=== PATIENT | female | born 1960 | race African-American/Black ===

== ENCOUNTER → 2016-09-29 | Outpatient (CLI) | payer MEDICARE, OTHER ==
[2016-09-29 17:30] LABS: ALT 27 U/L (9-52); AST 25 U/L (14-36); Alkaline Phosphatase 53 U/L (38-126); Anion Gap 12 mmol/L; Blood Urea Nitrogen 15 mg/dL (7-17); Calcium 9.8 mg/dL (8.4-10.2); Carbon Dioxide 29 mmol/L (22-30); Chloride 102 mmol/L (98-107); Glucose 91 mg/dL (74-99); Non-African American GFR(MDRD) >60 (>60 ml/min/1.73 sqM); Potassium 4.5 mmol/L (3.5-5.1); Sodium 143 mmol/L (137-145); Total Bilirubin 0.6 mg/dL (0.2-1.3); Total Protein 8.1 g/dL (6.3-8.2)
[2016-09-29 17:33] LABS: Basophils % (A) 0 %; CH 26.8; CHCM 31.7; Eosinophils % (A) 1 %; HCT 36.3 % (34.0-46.0); HDW 3.01; HGB 11.5 gm/dL (11.4-16.0); Hypochromasia Slight; Luc # (Auto) 0.14; Luc % (Auto) 4; Lymphocytes # (A) 0.5 k/uL (1.0-4.8); Lymphocytes % (A) 15 %; MCH 26.8 pg (25.0-35.0); MCHC 31.6 g/dL (31.0-37.0); Mean Platelet Volume 7.2; Monocytes # (A) 0.3 k/uL (0-1.0); Monocytes % (A) 8 %; Neutrophils # (A) 2.6 k/uL (1.3-7.7); Neutrophils % (A) 73 %; RBC 4.28 m/uL (3.80-5.40); RDW 14.8 % (11.5-15.5); WBC 3.6 k/uL (3.8-10.6); WBC (Perox) 3.82
[2016-09-29 17:35] LABS: MCV 84.7 fL (80.0-100.0)
[2016-09-29 17:46] LABS: HCG,Quantitative Serum <2.4 mIU/mL
== END | disposition home or self-care (01) ==
LOC: LABWHC1 16:29
PROVIDERS: ATTEND Radiology Radiation Oncology
DX: C50.412 Malignant neoplasm of upper-outer quadrant of left female breast (principal)
CPT/HCPCS: 36415; 80053; 80177; 84443; 84702; 85025

== ENCOUNTER → 2016-11-04 | Outpatient (CLI) | payer MEDICARE, OTHER ==
--- NOTE | 2016-11-05 07:45 | BD ---
EXAMINATION TYPE: MG DEXA axial skeleton. DATE OF EXAM: 11/04/2016 4:49 PM COMPARISON: NONE CLINICAL HISTORY: C50.112 BREAST CANCER, Z79.890 POST MENOPAUSAL, N95.1 Height: 62.5 Weight: 166 FRAX RISK QUESTIONS: Alcohol (3 or more units per day): NO Family History (Parent hip fracture): UNKNOWN Glucocorticoids (More than 3mos): NO (Ex: prednisone, prednisolone, methylprednisolone, dexamethasone, and hydrocortisone). History of Fracture in Adulthood: NO Secondary Osteoporosis: NO 1. Type 1 Diabetes: NO 2. Hyperthyroidism: NO 3. Menopause before 45: YES 4. Malnutrition: NO 5. Chronic liver disease: NO Rheumatoid Arthritis: NO Current Tobacco Use: NO RISK FACTORS HISTORY OF: Family History of Osteoporosis: UNKNOWN Smoke tobacco: NO Drink Alcohol: NO Active: NO Diet low in dairy products/other sources of calcium: NO Postmenopausal woman: HX OF HYST. 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 Bone mineral density as measured about the Lumbar spine is: ----- L1-L4(G/cm2): 1.419 T Score Values are as follows: ----- L1: 1.5 ----- L2: 2.0 ----- L3: 2.3 ----- L4: 1.9 ----- L1-L4: 2.0 Bone mineral density FIRST BONE DENSITY SCAN FOR HER......BASELINE Bone mineral density about the R hip (g/cm2): 1.366 Bone mineral density about the L hip (g/cm2): 1.377 T Score values are as follows: -----R Neck: 1.9 -----L Neck: 2.0 -----R Intertrochanter: 3.0 -----L Intertrochanter: 3.4 Bone mineral density FIRST BONE DENSITY......BASELINE FRAX %'S: 1.9% FOR A MAJOR OSTEOPOROTIC FX AND 0.0% FOR A HIP FX......PROBABILITY OF FX IN 10 YRS TIME IMPRESSION: Normal (Values between +1 and -1 indicate normal bone mass MAJOR OSTEOPOROTIC FRACTURE RISK: 1.9% HIP FRACTURE RISK: 0% NOTE: T-SCORE=SD OF THE YOUNG ADULT MEAN.
== END | disposition home or self-care (01) ==
LOC: RADBDWWP 16:14
PROVIDERS: ATTEND Internal Medicine Hematology & Oncology
DX: C50.112 Malignant neoplasm of central portion of left female breast (principal)
CPT/HCPCS: 77080

== ENCOUNTER → 2016-11-24 | Outpatient (CLI) | payer MEDICARE, OTHER ==
[2016-11-24 17:48] LABS: Potassium 4.7 mmol/L (3.5-5.1)
== END | disposition home or self-care (01) ==
LOC: LABWHC1 16:39
PROVIDERS: ATTEND Psychiatry & Neurology Neurology
DX: G40.909 Epilepsy, unspecified, not intractable, without status epilepticus (principal)
CPT/HCPCS: 36415; 80051; 80177

== ENCOUNTER → 2016-12-14 | Outpatient (CLI) | payer MEDICARE, OTHER ==
--- NOTE | 2016-12-14 12:33 | MM ---
Reason for exam: history of breast cancer, mastectomy. Last mammogram was performed 1 year and 2 months ago. History: Patient is postmenopausal, has history of breast cancer at age 55, and is nulliparous. Family history of breast cancer in mother at age 65. Mastectomy of the left breast, January 28, 2016. Malignant MG pre op needle loc LT of the left breast, January 15, 2016. Malignant MG stereo VAD BX LT of the left breast, November 17, 2015. Benign MG stereo VAD BX LT of the left breast, February 04, 2014. Excisional biopsy of the right breast, March 06, 2008. Benign core biopsy of the right breast, February 18, 1998. Excisional biopsy of the left breast. Taking antineoplastic for 1 year beginning at age 55. Physical Findings: Nurse did not find any significant physical abnormalities on exam. MG 3D Diag Mammo W/Cad RT CC and MLO view(s) were taken of the right breast. Prior study comparison: October 13, 2015, bilateral MG 3d work up w/cad [place]. September 11, 2015, bilateral MG 3d screening mammo w/cad. The breast tissue is heterogeneously dense. This may lower the sensitivity of mammography. Persistent nodularity and spiculation in the right breast 3 o'clock position. Ultrasound is recommended. These results were verbally communicated with the patient and result sheet given to the patient on 12/14/16. ASSESSMENT: Incomplete: need additional imaging evaluation, BI-RAD 0 RECOMMENDATION: Ultrasound of the right breast. Manage patient on a clinical basis.
--- NOTE | 2016-12-14 12:35 | USB ---
Reason for exam: additional evaluation requested from abnormal screening. History: Patient is postmenopausal, has history of breast cancer at age 55, and is nulliparous. Family history of breast cancer in mother at age 65. Mastectomy of the left breast, January 28, 2016. Malignant MG pre op needle loc LT of the left breast, January 15, 2016. Malignant MG stereo VAD BX LT of the left breast, November 17, 2015. Benign MG stereo VAD BX LT of the left breast, February 04, 2014. Excisional biopsy of the right breast, March 06, 2008. Benign core biopsy of the right breast, February 18, 1998. Excisional biopsy of the left breast. Taking antineoplastic for 1 year beginning at age 55. US Breast Limited RT Right breast ultrasound demonstrates a 18 x 10 x 7mm irregular, solid, shadowing, hypoechoic lesion at 3 o'clock 3.5cm from nipple for which a biopsy is recommended, a 6 x 5 x 8mm oval, solid lesion at 3 o'clock 3.5cm from nipple and a 7 x 4 x 8mm oval, solid lesion at 3 o'clock. These results were verbally communicated with the patient and result sheet given to the patient on 12/14/16. ASSESSMENT: Suspicious, BI-RAD 4 RECOMMENDATION: Ultrasound core biopsy of the right breast. Called Dr. Martínez with mammographic findings and has scheduled an appointment for the patient for 12/22/16 at 11:[address] Alas. PRELIMINARY REPORT CALLED AND FAXED TO DR. ALAS ON 12/14/16 AT 300/TMP.
== END ==
LOC: RADMAMWWP 08:51
PROVIDERS: ATTEND Internal Medicine Hematology & Oncology
DX: Z12.31 Encounter for screening mammogram for malignant neoplasm of breast (principal); Z85.3 Personal history of malignant neoplasm of breast; Z90.12 Acquired absence of left breast and nipple
CPT/HCPCS: 76642; G0206; G0279; 99214

== ENCOUNTER → 2017-03-03 | Outpatient (CLI) | payer MEDICARE, OTHER | END | disposition home or self-care (01) | LOC: LABWHC1 16:56 | PROVIDERS: ATTEND Psychiatry & Neurology Neurology | DX: G40.909 Epilepsy, unspecified, not intractable, without status epilepticus (principal) | CPT/HCPCS: 36415; 80183 ==

== ENCOUNTER 2017-06-07 20:03 | Emergency (ER) | payer MEDICARE, OTHER ==
[2017-06-07 20:20] VITALS: TEMP 98.7
[2017-06-07] MEDS ORDERED: SODIUM CHLORIDE 0.9% 1,000 ML IV ONE (20:29)
[2017-06-07 21:42] LABS: Basophils % (A) 0 %; CH 29.5; CHCM 33.7; Eosinophils # (A) 0.1 k/uL (0-0.7); Eosinophils % (A) 1 %; HCT 36.7 % (34.0-46.0); HDW 2.49; HGB 11.8 gm/dL (11.4-16.0); Luc # (Auto) 0.11; Luc % (Auto) 2; Lymphocytes # (A) 0.9 k/uL (1.0-4.8); Lymphocytes % (A) 12 %; MCH 28.4 pg (25.0-35.0); MCHC 32.3 g/dL (31.0-37.0); Mean Platelet Volume 7.3; Monocytes # (A) 0.3 k/uL (0-1.0); Monocytes % (A) 4 %; Neutrophils % (A) 82 %; RBC 4.17 m/uL (3.80-5.40); RDW 14.3 % (11.5-15.5); WBC 7.4 k/uL (3.8-10.6); WBC (Perox) 7.45
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
[2017-06-07 21:51] LABS: ALT 27 U/L (9-52); AST 26 U/L (14-36); Acetaminophen <10.0 ug/mL; Alcohol <10 mg/dL; Alkaline Phosphatase 77 U/L (38-126); Anion Gap 12 mmol/L; Blood Urea Nitrogen 17 mg/dL (7-17); Calcium 9.8 mg/dL (8.4-10.2); Carbon Dioxide 29 mmol/L (22-30); Chloride 100 mmol/L (98-107); Glucose 127 mg/dL (74-99); Non-African American GFR(MDRD) >60 (>60 ml/min/1.73 sqM); Potassium 3.9 mmol/L (3.5-5.1); Salicylate <1.0 mg/dL; Sodium 141 mmol/L (137-145); Total Bilirubin 0.2 mg/dL (0.2-1.3); Total Protein 7.6 g/dL (6.3-8.2)
[2017-06-07 21:52] LABS: Prothrombin Time 10.6 sec (9.0-12.0)
[2017-06-07 22:02] LABS: Partial Thromboplastin Time 21.6 sec (22.0-30.0)
[2017-06-07 23:28] LABS: Glucose,Whole Blood 114 mg/dL (75-99)
[2017-06-07 23:45] LABS: Appearance,Urine Clear (Clear); Bacteria,Urine Rare /hpf; Bilirubin,Urine Negative (Negative); Glucose,Urine (UA) Negative (Negative); Ketones,Urine Negative (Negative); Leukocyte Esterase,Urine Large (Negative); Mucus,Urine Rare /hpf; Nitrite,Urine Negative (Negative); PH, Urine 5.5 (5.0-8.0); Particle Count 2038; Protein,Urine Trace (Negative); RBC,Urine 1 /hpf (0-5); Specific Gravity,Urine 1.016 (1.001-1.035); Squamous Epithelial Cell,Urine 1 /hpf (0-4); UA Billing (MACRO vs. MICRO) MICRO; Urobilinogen,Urine <2.0 mg/dL (<2.0); WBC,Urine 24 /hpf (0-5)
[2017-06-08] MEDS ORDERED: CIPROFLOXACIN HCL 500 MG TAB PO STA (02:07)
[2017-06-08 02:24] VITALS: BP 105/57; PULSE 70; RESP 18
== END 2017-06-08 02:42 | disposition home or self-care (01) ==
LOC: EC 20:03
DX: F91.1 Conduct disorder, childhood-onset type (principal); N39.0 Urinary tract infection, site not specified; R60.0 Localized edema; I10 Essential (primary) hypertension; G40.909 Epilepsy, unspecified, not intractable, without status epilepticus; Z79.899 Other long term (current) drug therapy; Z92.21 Personal history of antineoplastic chemotherapy; Z85.3 Personal history of malignant neoplasm of breast; Z90.12 Acquired absence of left breast and nipple
CPT/HCPCS: 36415; 80053; 80306; 80320; 81001; 82140; 83520; 85025; 85610; 85730; 93005; 96360; 96361; 99285

== ENCOUNTER 2017-07-16 16:05 | Emergency (ER) | payer MEDICARE, OTHER ==
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
[2017-07-16] MEDS ORDERED: hydrOXYzine PAMOATE 25 MG CAP PO STA ×2 (19:48→20:22)
[2017-07-16 19:59] LABS: Appearance,Urine Clear (Clear); Bilirubin,Urine Negative (Negative); Glucose,Urine (UA) Negative (Negative); Ketones,Urine Negative (Negative); Leukocyte Esterase,Urine Small (Negative); Mucus,Urine Rare /hpf; Nitrite,Urine Negative (Negative); PH, Urine 6.5 (5.0-8.0); Particle Count 1187; Protein,Urine Negative (Negative); Specific Gravity,Urine 1.013 (1.001-1.035); Squamous Epithelial Cell,Urine <1 /hpf (0-4); UA Billing (MACRO vs. MICRO) MICRO; Urobilinogen,Urine <2.0 mg/dL (<2.0); WBC,Urine 6 /hpf (0-5)
[2017-07-16 20:32] VITALS: RESP 16
[2017-07-16 20:58] VITALS: BP 146/96; PULSE 68; TEMP 98
== END 2017-07-16 20:50 | disposition home or self-care (01) ==
LOC: EC 16:05
DX: R45.1 Restlessness and agitation (principal); I10 Essential (primary) hypertension; G40.909 Epilepsy, unspecified, not intractable, without status epilepticus; G47.30 Sleep apnea, unspecified; Z99.89 Dependence on other enabling machines and devices; E07.9 Disorder of thyroid, unspecified; F32.9 Major depressive disorder, single episode, unspecified; Z85.3 Personal history of malignant neoplasm of breast; Z79.899 Other long term (current) drug therapy
CPT/HCPCS: 80306; 81001; 82075; 87086; 99284

== ENCOUNTER → 2017-08-23 | Outpatient (CLI) | payer MEDICARE, OTHER | END | disposition home or self-care (01) | LOC: LABWHC1 10:02 | PROVIDERS: ATTEND Psychiatry & Neurology Neurology | DX: G40.909 Epilepsy, unspecified, not intractable, without status epilepticus (principal) | CPT/HCPCS: 36415; 80183 ==

== ENCOUNTER 2017-10-13 20:30 | Emergency (ER) | payer MEDICARE, OTHER ==
[2017-10-13 20:56] VITALS: RESP 18
[2017-10-13] MEDS ORDERED: PROPARACAINE 0.5% OPHTH DROPS 15 ML BTL BOTH EYES STA (20:59)
[2017-10-13] MEDS ORDERED: IBUPROFEN 600 MG TAB PO STA (21:19)
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
[2017-10-13 22:17] VITALS: BP 143/80; PULSE 58
[2017-10-13 22:58] VITALS: TEMP 98.3
== END 2017-10-13 22:30 | disposition home or self-care (01) ==
LOC: EC 20:30
DX: S05.11XA Contusion of eyeball and orbital tissues, right eye, initial encounter (principal); Z77.098 Contact with and (suspected) exposure to other hazardous, chiefly nonmedicinal, chemicals; I10 Essential (primary) hypertension; G40.909 Epilepsy, unspecified, not intractable, without status epilepticus; E07.9 Disorder of thyroid, unspecified; G47.30 Sleep apnea, unspecified; Z99.89 Dependence on other enabling machines and devices; F32.9 Major depressive disorder, single episode, unspecified; Z85.3 Personal history of malignant neoplasm of breast; Z79.899 Other long term (current) drug therapy; Y09 Assault by unspecified means
CPT/HCPCS: 99283

== ENCOUNTER → 2017-12-20 | Outpatient (CLI) | payer MEDICARE, OTHER ==
--- NOTE | 2017-12-20 10:47 | MM ---
Reason for exam: additional evaluation requested from prior study. Last mammogram was performed 1 year ago. History: Patient is postmenopausal, has history of breast cancer at age 55, and is nulliparous. Family history of breast cancer in mother at age 65. Mastectomy of the left breast, January 28, 2016. Malignant MG pre op needle loc LT of the left breast, January 15, 2016. Malignant MG stereo VAD BX LT of the left breast, November 17, 2015. Chemotherapy, 2015. Radiation therapy, 2015. Benign MG stereo VAD BX LT of the left breast, February 04, 2014. Excisional biopsy of the right breast, March 06, 2008. Benign core biopsy of the right breast, February 18, 1998. Excisional biopsy of the left breast. Taking antineoplastic for 1 year beginning at age 55. Physical Findings: Nurse did not find any significant physical abnormalities on exam. MG Diagnostic Mammo RT w CAD CC and MLO view(s) were taken of the right breast. Prior study comparison: December 14, 2016, right breast MG 3d diag mammo w/cad RT. October 13, 2015, bilateral MG 3d work up w/cad [place]. The breast tissue is heterogeneously dense. This may lower the sensitivity of mammography. Previous mammotome biopsy in the right breast x 2. There is chronic nodularity in the right breast. There is no discrete abnormality. These results were verbally communicated with the patient and result sheet given to the patient on 12/20/17. ASSESSMENT: Benign, BI-RAD 2 RECOMMENDATION: Follow-up diagnostic mammogram of the right breast in 1 year.
== END | disposition home or self-care (01) ==
LOC: RADMAMWWP 09:08
PROVIDERS: ATTEND Internal Medicine Hematology & Oncology
DX: Z08 Encounter for follow-up examination after completed treatment for malignant neoplasm (principal); Z85.3 Personal history of malignant neoplasm of breast
CPT/HCPCS: 77065

== ENCOUNTER → 2018-01-05 | Outpatient (CLI) | payer MEDICARE, OTHER ==
[2018-01-05 09:01] LABS: HCT 39.6 % (34.0-46.0); HGB 12.7 gm/dL (11.4-16.0); MCH 27.1 pg (25.0-35.0); MCHC 32.1 g/dL (31.0-37.0); MCV 84.3 fL (80.0-100.0); Mean Platelet Volume 6.4; Platelet Count 218 k/uL (150-450); RDW 13.9 % (11.5-15.5); WBC 3.8 k/uL (3.8-10.6)
[2018-01-05 10:03] LABS: Appearance,Urine Clear (Clear); Bilirubin,Urine Negative (Negative); Blood,Urine Negative (Negative); Color,Urine Yellow; Glucose,Urine (UA) Negative (Negative); Ketones,Urine Negative (Negative); Leukocyte Esterase,Urine Moderate (Negative); Mucus,Urine Moderate /hpf; Nitrite,Urine Negative (Negative); PH, Urine 5.5 (5.0-8.0); Protein,Urine Trace (Negative); Specific Gravity,Urine 1.023 (1.001-1.035); Urobilinogen,Urine <2.0 mg/dL (<2.0); WBC,Urine 4 /hpf (0-5)
== END | disposition home or self-care (01) ==
LOC: LABWHC1 12-20 08:30
PROVIDERS: ATTEND Family Medicine
DX: E78.5 Hyperlipidemia, unspecified (principal); R41.0 Disorientation, unspecified; Z13.9 Encounter for screening, unspecified
CPT/HCPCS: 36415; 80061; 81001; 84443; 85027

== ENCOUNTER → 2018-01-09 | Outpatient (CLI) | payer MEDICARE, OTHER | END | disposition home or self-care (01) | LOC: LABWHC1 07:57 | PROVIDERS: ATTEND Psychiatry & Neurology Neurology | DX: G40.209 Localization-related (focal) (partial) symptomatic epilepsy and epileptic syndromes with complex partial seizures, not intractable, without status epilepticus (principal) | CPT/HCPCS: 36415; 80183 ==

== ENCOUNTER 2018-01-19 20:49 | Emergency (ER) | payer MEDICARE, OTHER ==
[2018-01-19] MEDS ORDERED: SODIUM CHLORIDE 0.9% 1,000 ML IV ONE (22:10)
[2018-01-19 23:01] LABS: Basophils % (A) 0 %; Eosinophils % (A) 0 %; HCT 37.4 % (34.0-46.0); HGB 12.7 gm/dL (11.4-16.0); Lymphocytes # (A) 1.4 k/uL (1.0-4.8); Lymphocytes % (A) 20 %; MCH 27.8 pg (25.0-35.0); MCHC 33.9 g/dL (31.0-37.0); Mean Platelet Volume 6.9; Monocytes # (A) 0.3 k/uL (0-1.0); Monocytes % (A) 5 %; Neutrophils # (A) 5.2 k/uL (1.3-7.7); Neutrophils % (A) 73 %; Platelet Count 233 k/uL (150-450); RBC 4.56 m/uL (3.80-5.40); RDW 13.9 % (11.5-15.5); WBC 7.1 k/uL (3.8-10.6)
--- NOTE | 2018-01-19 23:10 | ED ---
Neuro HPI - General Chief Complaint: Neuro Symptoms/Deficit Stated Complaint: Mental health Time Seen by Provider: 01/19/18 21:54 Source: patient Mode of arrival: EMS Limitations: altered mental status - History of Present Illness Is the patient presenting with stroke symptoms?: No Initial Comments: 57 years old female in the ER with her caregiver her caregiver takes care of her medications she has a history of seizure disorder caregiver noticed that she has some been quite confused and agitated and at times more aggressive her psychiatrist and neurologist has been trying different medications and they advised caregiver to bring her to the ER to make sure there is no medical staff or medical disease process causing. Patient herself denies any headaches no neck stiffness no chest pain no shortness of breath. - Related Data Home Medications: Home Medications Medication Instructions Recorded Confirmed Furosemide [Lasix] 40 mg PO DAILY 01/04/14 01/19/18 Metoprolol Tartrate [Lopressor] 50 mg PO BID 01/04/14 01/19/18 Potassium Chloride [Klor-Con 10] 10 meq PO DAILY 01/04/14 01/19/18 Cholecalciferol [Vitamin D3] 2,000 unit PO DAILY 12/26/15 01/19/18 Folic Acid 0.5 mg PO DAILY 12/26/15 01/19/18 Letrozole [Femara] 2.5 mg PO DAILY 06/07/17 01/19/18 OXcarbazepine [Trileptal] 600 mg PO BID@0800,2100 06/07/17 01/19/18 OXcarbazepine [Trileptal] 300 mg PO DAILY@1200 10/13/17 01/19/18 fluPHENAZine DECANOATE [Prolixin 25 mg IM [id number] 10/13/17 01/19/18 Decanoate] hydrOXYzine PAMOATE [Vistaril] 50 mg PO TID PRN 10/13/17 01/19/18 Lisinopril 30 mg PO DAILY 01/19/18 01/19/18 OLANZapine [ZyPREXA Zydis] 5 mg PO DAILY PRN 01/19/18 01/19/18 Previous Rx's Medication Instructions Recorded Nitrofurantoin Monohyd/M-Cryst 100 mg PO Q12HR #14 cap 01/20/18 [Macrobid] Allergies/Adverse Reactions: Allergies Allergy/AdvReac Type Severity Reaction Status Date / Time No Known Allergies Allergy Verified 01/19/18 21:21 Review of Systems ROS Statement: Those systems with pertinent positive or pertinent negative responses have been documented in the HPI. ROS Other: All systems not noted in ROS Statement are negative. General Exam - General Exam Comments Initial Comments: General: The patient is awake , follows the commands GCS is 15 Skin: Skin is warm and dry and no rashes or lesions are noted. Eye: Pupils are equal, round and reactive to light, extra-ocular movements are intact; there is normal conjunctiva bilaterally. Ears, nose, mouth and throat: There are moist mucous membranes and no oral lesions. Neck: The neck is supple, there is no tenderness or JVD. Cardiovascular: There is a regular rate and rhythm. No murmur, rub or gallop is appreciated. Respiratory: To auscultation bilateral, no wheezing no rhonchi no distress respiratory khan noticed Gastrointestinal: Soft, non-distended, non-tender abdomen without masses or organomegaly noted. There is no rebound or guarding present. Bowel sounds are unremarkable. Back: There is no tenderness to palpation in the midline. There is no obvious deformity. Musculoskeletal: Normal ROM, chronic dependent edema of lower extremities bilateral Neurological: CN II-XII intact, Cranial nerves III through XII are intact. There are no obvious motor or sensory deficits. Coordination appears grossly intact. Speech is normal. Psychiatric: Cooperative, appropriate mood & affect, normal judgment. Limitations: altered mental status Stroke [facility] - Lab Data Result diagrams: 01/19/18 22:50 01/19/18 22:50 Lab Results 01/19/18 01/19/18 01/19/18 Range/Units 22:47 22:50 22:50 WBC 7.1 (3.8-10.6) k/uL RBC 4.56 (3.80-5.40) m/uL Hgb 12.7 (11.4-16.0) gm/dL Hct 37.4 (34.0-46.0) % MCV 82.0 (80.0-100.0) fL MCH 27.8 (25.0-35.0) pg MCHC 33.9 (31.0-37.0) g/dL RDW 13.9 (11.5-15.5) % Plt Count 233 (150-450) k/uL Neutrophils % 73 % Lymphocytes % 20 % Monocytes % 5 % Eosinophils % 0 % Basophils % 0 % Neutrophils # 5.2 (1.3-7.7) k/uL Lymphocytes # 1.4 (1.0-4.8) k/uL Monocytes # 0.3 (0-1.0) k/uL Eosinophils # 0.0 (0-0.7) k/uL Basophils # 0.0 (0-0.2) k/uL PT (9.0-12.0) sec INR (<1.2) APTT (22.0-30.0) sec Sodium (137-145) mmol/L Potassium (3.5-5.1) mmol/L Chloride (98-107) mmol/L Carbon Dioxide (22-30) mmol/L Anion Gap mmol/L BUN (7-17) mg/dL Creatinine (0.52-1.04) mg/dL Est GFR (CKD-EPI)AfAm (>60 ml/min/1.73 sqM) Est GFR (CKD-EPI)NonAf (>60 ml/min/1.73 sqM) Glucose (74-99) mg/dL POC Glucose (mg/dL) 127 H (75-99) mg/dL POC Glu Editor Greeting Card ID Mariano Gandara Calcium (8.4-10.2) mg/dL Total Bilirubin (0.2-1.3) mg/dL AST (14-36) U/L ALT (9-52) U/L Alkaline Phosphatase (38-126) U/L Total Creatine Kinase 114 (30-135) U/L CK-MB (CK-2) 0.5 (0.0-2.4) ng/mL CK-MB (CK-2) Rel Index 0.4 Troponin I <0.012 (0.000-0.034) ng/mL Total Protein (6.3-8.2) g/dL Albumin (3.5-5.0) g/dL Urine Color Urine Appearance (Clear) Urine pH (5.0-8.0) Ur Specific [place] (1.001-1.035) Urine Protein (Negative) Urine Glucose (UA) (Negative) Urine Ketones (Negative) Urine Blood (Negative) Urine Nitrite (Negative) Urine Bilirubin (Negative) Urine Urobilinogen (<2.0) mg/dL Ur Leukocyte Esterase (Negative) Urine RBC (0-5) /hpf Urine WBC (0-5) /hpf Ur Squamous Epith Cells (0-4) /hpf Urine Bacteria (None) /hpf Hyaline Casts (0-2) /lpf Urine Mucus (None) /hpf 01/19/18 01/19/18 01/19/18 Range/Units 22:50 22:50 23:15 WBC (3.8-10.6) k/uL RBC (3.80-5.40) m/uL Hgb (11.4-16.0) gm/dL Hct (34.0-46.0) % MCV (80.0-100.0) fL MCH (25.0-35.0) pg MCHC (31.0-37.0) g/dL RDW (11.5-15.5) % Plt Count (150-450) k/uL Neutrophils % % Lymphocytes % % Monocytes % % Eosinophils % % Basophils % % Neutrophils # (1.3-7.7) k/uL Lymphocytes # (1.0-4.8) k/uL Monocytes # (0-1.0) k/uL Eosinophils # (0-0.7) k/uL Basophils # (0-0.2) k/uL PT 10.9 (9.0-12.0) sec INR 1.1 (<1.2) APTT 22.4 (22.0-30.0) sec Sodium 145 (137-145) mmol/L Potassium 4.3 (3.5-5.1) mmol/L Chloride 100 (98-107) mmol/L Carbon Dioxide 33 H (22-30) mmol/L Anion Gap 12 mmol/L BUN 18 H (7-17) mg/dL Creatinine 0.80 (0.52-1.04) mg/dL Est GFR (CKD-EPI)AfAm >90 (>60 ml/min/1.73 sqM) Est GFR (CKD-EPI)NonAf 82 (>60 ml/min/1.73 sqM) Glucose 118 H (74-99) mg/dL POC Glucose (mg/dL) (75-99) mg/dL POC Glu Editor Greeting Card ID Calcium 9.9 (8.4-10.2) mg/dL Total Bilirubin 0.3 (0.2-1.3) mg/dL AST 31 (14-36) U/L ALT 34 (9-52) U/L Alkaline Phosphatase 65 (38-126) U/L Total Creatine Kinase (30-135) U/L CK-MB (CK-2) (0.0-2.4) ng/mL CK-MB (CK-2) Rel Index Troponin I (0.000-0.034) ng/mL Total Protein 7.8 (6.3-8.2) g/dL Albumin 4.4 (3.5-5.0) g/dL Urine Color Yellow Urine Appearance Clear (Clear) Urine pH 6.5 (5.0-8.0) Ur Specific [place] 1.015 (1.001-1.035) Urine Protein Negative (Negative) Urine Glucose (UA) Negative (Negative) Urine Ketones Negative (Negative) Urine Blood Negative (Negative) Urine Nitrite Negative (Negative) Urine Bilirubin Negative (Negative) Urine Urobilinogen <2.0 (<2.0) mg/dL Ur Leukocyte Esterase Moderate H (Negative) Urine RBC 1 (0-5) /hpf Urine WBC 2 (0-5) /hpf Ur Squamous Epith Cells 1 (0-4) /hpf Urine Bacteria Rare H (None) /hpf Hyaline Casts 7 H (0-2) /lpf Urine Mucus Rare H (None) /hpf Past Medical History Past Medical History: Cancer, Eye Disorder, Hypertension, Seizure Disorder, Sleep Apnea/CPAP/BIPAP, Thyroid Disorder Additional Past Medical History / Comment(s): DEVLOPMENTALY Delayed, SAYS "YES, FOR EVERYTHING," HASHIMOTOS, , bilateral GLAUCOMA. USES C-PAP. chronic CELLULITIS LOWER LEGS, HAS EDEMA, WEARS SUPPORT HOSE. LT BREAST CA CURRENTLY, with mastectomy and receiving chemo. History of Any Multi-Drug Resistant Organisms: None Reported Past Surgical History: Breast Surgery, Hysterectomy Additional Past Surgical History / Comment(s): LT BREAST biospy- previous had breast procedures in past-not sure what, L breast mastectomy and lymphadenectomy , R chest power port. Past Anesthesia/Blood Transfusion Reactions: No Reported Reaction Additional Past Anesthesia/Blood Transfusion Reaction / Comment(s): IV started by anesthesia. diff getting IV in for last procedure. Took > 1 hr and need Ultrasound to find vein per guardian. Past Psychological History: Depression Smoking Status: Never smoker Past Alcohol Use History: None Reported Past Drug Use History: None Reported - Past Family History Mother Family Medical History: Cancer Additional Family Medical History / Comment(s): , lung ca Father Family Medical History: Hypertension Additional Family Medical History / Comment(s): Cellulitis. Father at the age of 92yrs. Course Vital Signs 01/19/18 01/19/18 01/19/18 20:52 22:05 23:05 Temperature 98.3 F Pulse Rate 89 74 84 Respiratory 16 18 18 Rate Blood Pressure 145/84 129/75 150/87 O2 Sat by Pulse 99 99 99 Oximetry 01/20/18 00:10 Temperature Pulse Rate 80 Respiratory 18 Rate Blood Pressure 138/84 O2 Sat by Pulse 100 Oximetry Urine is normal sinus rhythm ventricular rate is 80 IL interval is 154 QRS duration is 74 QT/QTc is 400/461 review of this EKG reveals some T-wave flattening in lead [address] elevation or ST depression noticed the rest of the leads She is reassessed at term midnight, CBC, INR, troponin, EKG, compressive metabolic panel, head CT and chest x-ray are unremarkable, no signs of any infection noticed the urinalysis is the only test pending and that delaying the disposition as soon as we have the orders to the disposition accordingly, UA is reviewed, which started patient on Macrobid 100 mg twice daily for next 7 days and she will follow-up with family doctor Disposition Clinical Impression: Confusion, UTI (urinary tract infection) Disposition: HOME SELF-CARE Condition: Good Instructions: Urinary Tract Infection in Women (ED) Additional Instructions: Advised to follow follow-up with her psychiatrist and neurologist for further evaluation and management Prescriptions: Nitrofurantoin Monohyd/M-Cryst [Macrobid] 100 mg PO Q12HR #14 cap Is patient prescribed a controlled substance at d/c from ED?: No Referrals: Wilber Hatch DO [Primary Care Provider] - 1-2 days
[2018-01-19 23:12] LABS: ALT 34 U/L (9-52); AST 31 U/L (14-36); Albumin 4.4 g/dL (3.5-5.0); Alkaline Phosphatase 65 U/L (38-126); Anion Gap 12 mmol/L; Blood Urea Nitrogen 18 mg/dL (7-17); Calcium 9.9 mg/dL (8.4-10.2); Carbon Dioxide 33 mmol/L (22-30); Chloride 100 mmol/L (98-107); Glucose 118 mg/dL (74-99); Potassium 4.3 mmol/L (3.5-5.1); Sodium 145 mmol/L (137-145); Total Bilirubin 0.3 mg/dL (0.2-1.3); Total Protein 7.8 g/dL (6.3-8.2)
[2018-01-19 23:14] LABS: Creatine Kinase 114 U/L (30-135)
[2018-01-19 23:16] LABS: Glucose,Whole Blood 127 mg/dL (75-99)
--- NOTE | 2018-01-19 23:22 | XR ---
EXAMINATION TYPE: XR chest 2V DATE OF EXAM: 01/19/2018 COMPARISON: June 23, 2017 HISTORY: Altered mental status TECHNIQUE: Frontal and lateral views of the chest are obtained. FINDINGS: There is small linear density in the left upper lobe. The other lung vital are clear. The re is no heart failure. Heart and mediastinum are normal. There is no pleural effusion. Bony thorax a ppears intact. IMPRESSION: Mild left upper lobe subsegmental atelectasis. No heart failure. No change.
[2018-01-19 23:27] LABS: Creatine Kinase MB 0.5 ng/mL (0.0-2.4); Troponin I <0.012 ng/mL (0.000-0.034)
--- NOTE | 2018-01-19 23:38 | CT ---
EXAMINATION TYPE: CT brain wo con DATE OF EXAM: 01/19/2018 COMPARISON: June 23, 2017 HISTORY: Prior on synapse AMS CT DLP: 909.40 mGycm Automated exposure control for dose reduction was used. FINDINGS: There is mild cerebral cortical atrophy. There is no mass effect nor midline shift. There is no sign of intracranial hemorrhage. The calvarium is intact. IMPRESSION: MILD ATROPHY. NO ACUTE INTRACRANIAL ABNORMALITY. NO CHANGE.
[2018-01-19 23:47] LABS: INR 1.1 (<1.2); Partial Thromboplastin Time 22.4 sec (22.0-30.0); Prothrombin Time 10.9 sec (9.0-12.0)
[2018-01-20 00:09] VITALS: RESP 18
[2018-01-20 00:09] LABS: Appearance,Urine Clear (Clear); Bacteria,Urine Rare /hpf; Bilirubin,Urine Negative (Negative); Blood,Urine Negative (Negative); Color,Urine Yellow; Glucose,Urine (UA) Negative (Negative); Hyaline Casts,Urine 7 /lpf (0-2); Ketones,Urine Negative (Negative); Leukocyte Esterase,Urine Moderate (Negative); Mucus,Urine Rare /hpf; Nitrite,Urine Negative (Negative); PH, Urine 6.5 (5.0-8.0); Protein,Urine Negative (Negative); RBC,Urine 1 /hpf (0-5); Specific Gravity,Urine 1.015 (1.001-1.035); Squamous Epithelial Cell,Urine 1 /hpf (0-4); Urobilinogen,Urine <2.0 mg/dL (<2.0); WBC,Urine 2 /hpf (0-5)
[2018-01-20 01:29] VITALS: BP 132/80; PULSE 81; TEMP 99.2
== END 2018-01-20 01:20 | disposition home or self-care (01) ==
LOC: SUPCPDRO 20:49 → EC 20:49
DX: N39.0 Urinary tract infection, site not specified (principal); R41.0 Disorientation, unspecified; R40.2412 Glasgow coma scale score 13-15, at arrival to emergency department; I10 Essential (primary) hypertension; G40.909 Epilepsy, unspecified, not intractable, without status epilepticus; F32.9 Major depressive disorder, single episode, unspecified; G47.30 Sleep apnea, unspecified; Z99.89 Dependence on other enabling machines and devices; Z85.3 Personal history of malignant neoplasm of breast; Z79.899 Other long term (current) drug therapy
CPT/HCPCS: 36415; 51701; 70450; 71046; 80053; 81001; 82550; 82553; 84484; 85025; 85610; 85730; 93005; 99285

== ENCOUNTER → 2018-04-29 | Outpatient (CLI) | payer MEDICARE, OTHER | END | disposition home or self-care (01) | LOC: LABWHC1 09:40 | PROVIDERS: ATTEND Psychiatry & Neurology Neurology | DX: G40.909 Epilepsy, unspecified, not intractable, without status epilepticus (principal) | CPT/HCPCS: 36415; 80183 ==

== ENCOUNTER → 2018-08-01 | Outpatient (CLI) | payer MEDICARE, OTHER | LOC: LABWHC1 15:27 | PROVIDERS: ATTEND Psychiatry & Neurology Neurology | DX: G40.009 Localization-related (focal) (partial) idiopathic epilepsy and epileptic syndromes with seizures of localized onset, not intractable, without status epilepticus (principal) | CPT/HCPCS: 36415; 80183 ==

== ENCOUNTER 2018-09-28 14:06 | Emergency (ER) | payer MEDICARE, OTHER ==
--- NOTE | 2018-09-28 15:23 | ED ---
Psych HPI - General Source: EMS, Caregiver Mode of arrival: EMS - History of Present Illness MD Complaint: other (patient with angry outburst) Associated Psychiatric Symptoms: none History of same: Yes Quality: intermittent Improves With: none Worsens With: none Associated Symptoms: denies other symptoms Treatments Prior to Arrival: none <Lico Gonzalez - Last Filed: 09/28/18 16:15> <Car Cintron - Last Filed: 09/28/18 19:28> - General Chief Complaint: Psychiatric Symptoms Stated Complaint: Mental Health Time Seen by Provider: 09/28/18 14:32 - History of Present Illness Initial Comments: This is a delayed developmental woman presents ER for evaluation by psychiatry. Patient angry outburst what doctor's office earlier today no drugs or alcohol no recent change in medications. Patient sent in for psychiatric evaluation by her primary care (Lico Gonzalez) - Related Data Home Medications Medication Instructions Recorded Confirmed Furosemide [Lasix] 40 mg PO DAILY 01/04/14 09/28/18 Metoprolol Tartrate [Lopressor] 50 mg PO BID 01/04/14 09/28/18 Potassium Chloride [Klor-Con 10] 10 meq PO DAILY 01/04/14 09/28/18 Cholecalciferol [Vitamin D3] 2,000 unit PO DAILY 12/26/15 09/28/18 Folic Acid 0.5 mg PO DAILY 12/26/15 09/28/18 Letrozole [Femara] 2.5 mg PO DAILY 06/07/17 09/28/18 OXcarbazepine [Trileptal] 600 mg PO BID@0800,2100 06/07/17 09/28/18 OXcarbazepine [Trileptal] 300 mg PO DAILY@1200 10/13/17 09/28/18 fluPHENAZine DECANOATE [Prolixin 25 mg IM [id number] 10/13/17 09/28/18 Decanoate] hydrOXYzine PAMOATE [Vistaril] 50 mg PO TID PRN 10/13/17 09/28/18 Lisinopril 30 mg PO DAILY 01/19/18 09/28/18 OLANZapine [ZyPREXA Zydis] 5 mg PO DAILY PRN 01/19/18 09/28/18 Allergies Allergy/AdvReac Type Severity Reaction Status Date / Time No Known Allergies Allergy Verified 09/28/18 14:37 Review of Systems ROS Other: All systems not noted in ROS Statement are negative. <Lico Gonzalez - Last Filed: 09/28/18 16:15> ROS Other: All systems not noted in ROS Statement are negative. <Car Cintron - Last Filed: 09/28/18 19:28> ROS Statement: Those systems with pertinent positive or pertinent negative responses have been documented in the HPI. Past Medical History Past Medical History: Cancer, Eye Disorder, Hypertension, Seizure Disorder, Sleep Apnea/CPAP/BIPAP, Thyroid Disorder Additional Past Medical History / Comment(s): DEVLOPMENTALY Delayed, SAYS "YES, FOR EVERYTHING," HASHIMOTOS, , bilateral GLAUCOMA. USES C-PAP. chronic CELLULITIS LOWER LEGS, HAS EDEMA, WEARS SUPPORT HOSE. LT BREAST CA CURRENTLY, with mastectomy and receiving chemo. History of Any Multi-Drug Resistant Organisms: None Reported Past Surgical History: Breast Surgery, Hysterectomy Additional Past Surgical History / Comment(s): LT BREAST biospy- previous had breast procedures in past-not sure what, L breast mastectomy and lymphadenectomy , R chest power port. Past Anesthesia/Blood Transfusion Reactions: No Reported Reaction Additional Past Anesthesia/Blood Transfusion Reaction / Comment(s): IV started by anesthesia. diff getting IV in for last procedure. Took > 1 hr and need Ultrasound to find vein per guardian. Past Psychological History: Depression Smoking Status: Never smoker Past Alcohol Use History: None Reported Past Drug Use History: None Reported - Past Family History Mother Family Medical History: Cancer Additional Family Medical History / Comment(s): , lung ca Father Family Medical History: Hypertension Additional Family Medical History / Comment(s): Cellulitis. Father at the age of 92yrs. <Lico Gonzalez - Last Filed: 09/28/18 16:15> General Exam Limitations: altered mental status General appearance: alert, in no apparent distress Head exam: Present: atraumatic, normocephalic, normal inspection Eye exam: Present: normal appearance, PERRL, EOMI. Absent: scleral icterus, conjunctival injection, periorbital swelling ENT exam: Present: normal exam, mucous membranes moist Neck exam: Present: normal inspection. Absent: tenderness, meningismus, lymphadenopathy Respiratory exam: Present: normal lung sounds bilaterally. Absent: respiratory distress, wheezes, rales, rhonchi, stridor Cardiovascular Exam: Present: regular rate, normal rhythm, normal heart sounds. Absent: systolic murmur, diastolic murmur, rubs, gallop, clicks GI/Abdominal exam: Present: soft, normal bowel sounds. Absent: distended, tenderness, guarding, rebound, rigid Extremities exam: Present: normal inspection, full ROM, normal capillary refill. Absent: tenderness, pedal edema, joint swelling, calf tenderness Back exam: Present: normal inspection Neurological exam: Present: alert, oriented X3, CN II-XII intact Psychiatric exam: Present: normal affect, normal mood Skin exam: Present: warm, dry, intact, normal color. Absent: rash <Lico Gonzalez - Last Filed: 09/28/18 16:15> Course <Lico Gonzalez - Last Filed: 09/28/18 16:15> <Car Cintron - Last Filed: 09/28/18 19:28> Vital Signs 09/28/18 14:12 Temperature 98.2 F Pulse Rate 61 Respiratory 18 Rate Blood Pressure 156/95 O2 Sat by Pulse 98 Oximetry - Reevaluation(s) Reevaluation #1: 09/28/18 16:15 Medical clear for psychiatric evaluation (Lico Gonzalez) Medical Decision Making - Lab Data Result diagrams: 09/28/18 15:25 09/28/18 15:25 <Lico Gonzalez - Last Filed: 09/28/18 16:15> - Lab Data Result diagrams: 09/28/18 15:25 09/28/18 15:25 <Car Cintron - Last Filed: 09/28/18 19:28> - Medical Decision Making The patient was evaluated by the [facility] service found not to be a risk to himself or anyone else he'll be discharged with outpatient treatment as per usual (Car Cintron) - Lab Data Lab Results 09/28/18 09/28/18 09/28/18 Range/Units 15:25 15:25 15:30 WBC 5.3 (3.8-10.6) k/uL RBC 4.77 (3.80-5.40) m/uL Hgb 13.0 (11.4-16.0) gm/dL Hct 39.4 (34.0-46.0) % MCV 82.6 (80.0-100.0) fL MCH 27.3 (25.0-35.0) pg MCHC 33.0 (31.0-37.0) g/dL RDW 13.2 (11.5-15.5) % Plt Count 231 (150-450) k/uL Neutrophils % 61 % Lymphocytes % 25 % Monocytes % 9 % Eosinophils % 1 % Basophils % 1 % Neutrophils # 3.2 (1.3-7.7) k/uL Lymphocytes # 1.3 (1.0-4.8) k/uL Monocytes # 0.5 (0-1.0) k/uL Eosinophils # 0.1 (0-0.7) k/uL Basophils # 0.0 (0-0.2) k/uL Sodium 141 (137-145) mmol/L Potassium 4.0 (3.5-5.1) mmol/L Chloride 101 (98-107) mmol/L Carbon Dioxide 32 H (22-30) mmol/L Anion Gap 8 mmol/L BUN 18 H (7-17) mg/dL Creatinine 0.67 (0.52-1.04) mg/dL Est GFR (CKD-EPI)AfAm >90 (>60 ml/min/1.73 sqM) Est GFR (CKD-EPI)NonAf >90 (>60 ml/min/1.73 sqM) Glucose 118 H (74-99) mg/dL Calcium 9.8 (8.4-10.2) mg/dL Total Bilirubin 0.3 (0.2-1.3) mg/dL AST 28 (14-36) U/L ALT 20 (9-52) U/L Alkaline Phosphatase 59 (38-126) U/L Total Protein 8.4 H (6.3-8.2) g/dL Albumin 4.5 (3.5-5.0) g/dL Urine Color Light Yellow Urine Appearance Clear (Clear) Urine pH 6.5 (5.0-8.0) Ur Specific [place] 1.004 (1.001-1.035) Urine Protein Negative (Negative) Urine Glucose (UA) Negative (Negative) Urine Ketones Negative (Negative) Urine Blood Negative (Negative) Urine Nitrite Negative (Negative) Urine Bilirubin Negative (Negative) Urine Urobilinogen <2.0 (<2.0) mg/dL Ur Leukocyte Esterase Large H (Negative) Urine WBC 9 H (0-5) /hpf Urine WBC Clumps Rare H (None) /hpf Urine Bacteria Rare H (None) /hpf Disposition <Lico Gonzalez - Last Filed: 09/28/18 16:15> Is patient prescribed a controlled substance at d/c from ED?: No <Car Cintron - Last Filed: 09/28/18 19:28> Clinical Impression: Adjustment reaction Disposition: HOME SELF-CARE Condition: Good Instructions (If sedation given, give patient instructions): Mood Disorders (ED ) Referrals: Wilber Hatch DO [Primary Care Provider] - 1-2 days
[2018-09-28 15:39] LABS: Basophils % (A) 1 %; Eosinophils # (A) 0.1 k/uL (0-0.7); Eosinophils % (A) 1 %; HCT 39.4 % (34.0-46.0); Lymphocytes # (A) 1.3 k/uL (1.0-4.8); Lymphocytes % (A) 25 %; MCH 27.3 pg (25.0-35.0); MCV 82.6 fL (80.0-100.0); Mean Platelet Volume 6.2; Monocytes # (A) 0.5 k/uL (0-1.0); Monocytes % (A) 9 %; Neutrophils # (A) 3.2 k/uL (1.3-7.7); Neutrophils % (A) 61 %; Platelet Count 231 k/uL (150-450); RBC 4.77 m/uL (3.80-5.40); RDW 13.2 % (11.5-15.5); WBC 5.3 k/uL (3.8-10.6)
[2018-09-28 15:48] LABS: ALT 20 U/L (9-52); AST 28 U/L (14-36); Albumin 4.5 g/dL (3.5-5.0); Alkaline Phosphatase 59 U/L (38-126); Anion Gap 8 mmol/L; Blood Urea Nitrogen 18 mg/dL (7-17); Calcium 9.8 mg/dL (8.4-10.2); Carbon Dioxide 32 mmol/L (22-30); Chloride 101 mmol/L (98-107); Glucose 118 mg/dL (74-99); Sodium 141 mmol/L (137-145); Total Bilirubin 0.3 mg/dL (0.2-1.3); Total Protein 8.4 g/dL (6.3-8.2)
[2018-09-28 15:54] LABS: Appearance,Urine Clear (Clear); Bacteria,Urine Rare /hpf; Bilirubin,Urine Negative (Negative); Blood,Urine Negative (Negative); Color,Urine Light Yellow; Glucose,Urine (UA) Negative (Negative); Ketones,Urine Negative (Negative); Leukocyte Esterase,Urine Large (Negative); Nitrite,Urine Negative (Negative); PH, Urine 6.5 (5.0-8.0); Protein,Urine Negative (Negative); Specific Gravity,Urine 1.004 (1.001-1.035); Urobilinogen,Urine <2.0 mg/dL (<2.0)
[2018-09-28 19:37] VITALS: BP 120/78; PULSE 84; RESP 17; TEMP 98.5
== END 2018-09-28 19:40 | disposition home or self-care (01) ==
LOC: EC 14:06
DX: F43.20 Adjustment disorder, unspecified (principal); R41.82 Altered mental status, unspecified; R45.4 Irritability and anger; R62.50 Unspecified lack of expected normal physiological development in childhood; F32.9 Major depressive disorder, single episode, unspecified; C50.912 Malignant neoplasm of unspecified site of left female breast; I10 Essential (primary) hypertension; G40.909 Epilepsy, unspecified, not intractable, without status epilepticus; Z79.890 Hormone replacement therapy; Z79.899 Other long term (current) drug therapy; Z90.12 Acquired absence of left breast and nipple; Z92.21 Personal history of antineoplastic chemotherapy
CPT/HCPCS: 36415; 80053; 80183; 81001; 82075; 85025; 87086; 99284

== ENCOUNTER → 2019-01-11 | Outpatient (CLI) | payer MEDICARE, OTHER ==
--- NOTE | 2019-01-12 07:35 | MM ---
Reason for exam: additional evaluation requested from prior study. Last mammogram was performed 1 year and 1 month ago. History: Patient is postmenopausal, has history of breast cancer at age 55, and is nulliparous. Family history of breast cancer in mother at age 65. Mastectomy of the left breast, January 28, 2016. Malignant MG pre op needle loc LT of the left breast, January 15, 2016. Malignant MG stereo VAD BX LT of the left breast, November 17, 2015. Chemotherapy, 2015. Radiation therapy, 2015. Benign MG stereo VAD BX LT of the left breast, February 04, 2014. Excisional biopsy of the right breast, March 06, 2008. Benign core biopsy of the right breast, February 18, 1998. Excisional biopsy of the left breast. Taking antineoplastic for 1 year beginning at age 55. Physical Findings: Nurse did not find any significant physical abnormalities on exam. MG 3D Diag Mammo W/Cad RT CC, MLO, ML, and XCCL view(s) were taken of the right breast. Prior study comparison: December 20, 2017, right breast MG diagnostic mammo RT w CAD. December 14, 2016, right breast MG 3d diag mammo w/cad RT. The breast tissue is heterogeneously dense. This may lower the sensitivity of mammography. Lower inner quadrant mass near 3 o'clock with marked distortion. Skin thickening back to 2013. Right upper outer quadrant mass at anterior depth measuring 1.4cm. Right upper outer quadrant posterior depth mass measuring 8mm. These results were verbally communicated with the patient and result sheet given to the patient on 01/11/19. ASSESSMENT: Incomplete: need additional imaging evaluation, BI-RAD 0 RECOMMENDATION: Ultrasound of the right breast.
--- NOTE | 2019-01-12 08:02 | USB ---
Reason for exam: additional evaluation requested from abnormal screening. History: Patient is postmenopausal, has history of breast cancer at age 55, and is nulliparous. Family history of breast cancer in mother at age 65. Mastectomy of the left breast, January 28, 2016. Malignant MG pre op needle loc LT of the left breast, January 15, 2016. Malignant MG stereo VAD BX LT of the left breast, November 17, 2015. Chemotherapy, 2016. Radiation therapy, 2015. Benign MG stereo VAD BX LT of the left breast, February 04, 2014. Excisional biopsy of the right breast, March 06, 2008. Benign core biopsy of the right breast, February 18, 1998. Excisional biopsy of the left breast. Taking antineoplastic for 1 year beginning at age 55. US Breast LT Right complete breast ultrasound includes all four quadrants, the retroareolar region and axilla. Finding demonstrates a 1.2 x 0.6 x 0.9cm solid, hypoechoic lesion at 2 o'clock increased in size from prior, biopsy recommended, a 0.7 x 0.6 x 0.3cm solid, hypoechoic lesion at 5 o'clock increase through transmission, complicated cyst, a 0.5 x 0.8 x 0.6cm solid, hypoechoic lesion at 9 o'clock, a 3.9 x 3.3 x 1.4cm solid, hypoechoic, vascular lesion at 9 o'clock, biopsy recommended and a 0.6 x 0.8 x 0.4cm solid, hypoechoic lesion at 11 o'clock, biopsy recommended. These results were verbally communicated with the patient and result sheet given to the patient on 01/11/19. ASSESSMENT: Suspicious, BI-RAD 4 RECOMMENDATION: Ultrasound core biopsy of the left breast.
--- NOTE | 2019-01-12 08:13 | USB ---
Reason for exam: additional evaluation requested from abnormal screening. History: Patient is postmenopausal, has history of breast cancer at age 55, and is nulliparous. Family history of breast cancer in mother at age 65. Mastectomy of the left breast, January 28, 2016. Malignant MG pre op needle loc LT of the left breast, January 15, 2016. Malignant MG stereo VAD BX LT of the left breast, November 17, 2015. Chemotherapy, 2016. Radiation therapy, 2015. Benign MG stereo VAD BX LT of the left breast, February 04, 2014. Excisional biopsy of the right breast, March 06, 2008. Benign core biopsy of the right breast, February 18, 1998. Excisional biopsy of the left breast. Taking antineoplastic for 1 year beginning at age 55. US Breast RT Right complete breast ultrasound includes all four quadrants, the retroareolar region and axilla. Finding demonstrates a 1.2 x 0.6 x 0.9cm solid, hypoechoic lesion at 2 o'clock increased in size from prior, biopsy recommended, a 0.7 x 0.6 x 0.3cm solid, hypoechoic lesion at 5 o'clock increase through transmission, complicated cyst, a 0.5 x 0.8 x 0.6cm solid, hypoechoic lesion at 9 o'clock, a 3.9 x 3.3 x 1.4cm solid, hypoechoic, vascular lesion at 9 o'clock, biopsy recommended and a 0.6 x 0.8 x 0.4cm solid, hypoechoic lesion at 11 o'clock, biopsy recommended. These results were verbally communicated with the patient and result sheet given to the patient on 01/11/19. ASSESSMENT: Suspicious, BI-RAD 4 RECOMMENDATION: Ultrasound core biopsy of the right breast. (3 sites) Called Dr. Martínez with mammographic findings and has scheduled an appointment for the patient for 01/23/19 at 1:[address] Alas. PRELIMINARY REPORT CALLED AND FAXED TO DR. ALAS ON 01/12/19.
== END ==
LOC: RADMAMWWP 13:34
PROVIDERS: ATTEND Internal Medicine Hematology & Oncology
DX: Z08 Encounter for follow-up examination after completed treatment for malignant neoplasm (principal); R92.8 Other abnormal and inconclusive findings on diagnostic imaging of breast; Z85.3 Personal history of malignant neoplasm of breast
CPT/HCPCS: 77065; 76641; G0279; 77061

== ENCOUNTER 2019-02-06 10:02 | Emergency (ER) | payer MEDICARE ==
[2019-02-06 10:13] VITALS: RESP 18
--- NOTE | 2019-02-06 10:50 | ED ---
Seizure HPI - General Chief Complaint: Seizure Stated Complaint: Seizure Time Seen by Provider: 02/06/19 10:30 Source: EMS, RN notes reviewed, old records reviewed Mode of arrival: EMS Limitations: physical limitation - History of Present Illness Initial Comments: Patient is 58-year-old female with developmental delay, history of seizure disorder. She presents emergency Department after seizure activity on public transport. Patient has returned to baseline upon EMS arrival. She states she has no pain, or other complaints. She reports she is taking her medications as directed. She reportedly had seizure activity for less than 1 minute and her head was protected during this time. - Related Data Home Medications Medication Instructions Recorded Confirmed Furosemide [Lasix] 40 mg PO DAILY 01/04/14 02/06/19 Metoprolol Tartrate [Lopressor] 50 mg PO BID 01/04/14 02/06/19 Potassium Chloride [Klor-Con 10] 10 meq PO DAILY 01/04/14 02/06/19 Folic Acid 0.5 mg PO DAILY 12/26/15 02/06/19 Letrozole [Femara] 2.5 mg PO DAILY 06/07/17 02/06/19 OXcarbazepine [Trileptal] 300 mg PO TID 10/13/17 02/06/19 Lisinopril 30 mg PO DAILY 01/19/18 02/06/19 OLANZapine [ZyPREXA Zydis] 5 mg PO DAILY PRN 01/19/18 02/06/19 Cholecalciferol (Vitamin D3) 2,000 unit PO DAILY 02/06/19 02/06/19 [Vitamin D3] hydrOXYzine PAMOATE [Vistaril] 25 mg PO TID 02/06/19 02/06/19 Allergies Allergy/AdvReac Type Severity Reaction Status Date / Time No Known Allergies Allergy Verified 02/06/19 10:54 Review of Systems ROS Statement: Those systems with pertinent positive or pertinent negative responses have been documented in the HPI. ROS Other: All systems not noted in ROS Statement are negative. Past Medical History Past Medical History: Cancer, Eye Disorder, Hypertension, Seizure Disorder, Sleep Apnea/CPAP/BIPAP, Thyroid Disorder Additional Past Medical History / Comment(s): DEVLOPMENTALY Delayed, SAYS "YES, FOR EVERYTHING," HASHIMOTOS, , bilateral GLAUCOMA. USES C-PAP. chronic CELLULITIS LOWER LEGS, HAS EDEMA, WEARS SUPPORT HOSE. LT BREAST CA CURRENTLY, with mastectomy and receiving chemo. History of Any Multi-Drug Resistant Organisms: None Reported Past Surgical History: Breast Surgery, Hysterectomy Additional Past Surgical History / Comment(s): LT BREAST biospy- previous had breast procedures in past-not sure what, L breast mastectomy and lymphadenectomy, R chest power port. Past Anesthesia/Blood Transfusion Reactions: No Reported Reaction Additional Past Anesthesia/Blood Transfusion Reaction / Comment(s): IV started by anesthesia. diff getting IV in for last procedure. Took > 1 hr and need Ultrasound to find vein per guardian. Past Psychological History: Depression Smoking Status: Never smoker Past Alcohol Use History: None Reported Past Drug Use History: None Reported - Past Family History Mother Family Medical History: Cancer Additional Family Medical History / Comment(s): , lung ca Father Family Medical History: Hypertension Additional Family Medical History / Comment(s): Cellulitis. Father at the age of 92yrs. General Exam - General Exam Comments Initial Comments: 58 year old female, no distress. Limitations: physical limitation General appearance: alert, in no apparent distress Head exam: Present: atraumatic, normocephalic, normal inspection Eye exam: Present: normal appearance, PERRL, EOMI. Absent: scleral icterus, conjunctival injection, periorbital swelling ENT exam: Present: normal exam, mucous membranes moist Neck exam: Present: normal inspection. Absent: tenderness, meningismus, lymphadenopathy Respiratory exam: Present: normal lung sounds bilaterally. Absent: respiratory distress, wheezes, rales, rhonchi, stridor Cardiovascular Exam: Present: regular rate, normal rhythm, normal heart sounds. Absent: systolic murmur, diastolic murmur, rubs, gallop, clicks Extremities exam: Present: normal inspection, full ROM, normal capillary refill. Absent: tenderness, pedal edema, joint swelling, calf tenderness Back exam: Present: normal inspection Neurological exam: Present: alert, oriented X3, CN II-XII intact Psychiatric exam: Present: normal affect, normal mood Skin exam: Present: warm, dry, intact, normal color. Absent: rash Course Vital Signs 02/06/19 02/06/19 02/06/19 10:08 11:11 12:00 Temperature 98.0 F Pulse Rate 66 64 86 Respiratory 18 18 18 Rate Blood Pressure 148/72 150/93 150/90 O2 Sat by Pulse 100 100 99 Oximetry 02/06/19 13:25 Temperature 98.2 F Pulse Rate 81 Respiratory 18 Rate Blood Pressure 146/76 O2 Sat by Pulse 99 Oximetry Medical Decision Making - Medical Decision Making This is a 58 year old female with seizure disorder with 1 minute seizure on public transport. She is at baseline according to caregiver. She has no other complaints and feels well and wants to go home after fluids. Labs were normal. She sees PCP within the week and follows with neurology. Patient advised to continue seizure medication and return arameters discussed. - Lab Data Result diagrams: 02/06/19 11:15 02/06/19 11:15 Lab Results 02/06/19 02/06/19 02/06/19 Range/Units 11:15 11:15 11:15 WBC 6.6 (3.8-10.6) k/uL RBC 4.63 (3.80-5.40) m/uL Hgb 12.6 (11.4-16.0) gm/dL Hct 38.8 (34.0-46.0) % MCV 83.8 (80.0-100.0) fL MCH 27.2 (25.0-35.0) pg MCHC 32.5 (31.0-37.0) g/dL RDW 14.3 (11.5-15.5) % Plt Count 293 (150-450) k/uL Neutrophils % 84 % Lymphocytes % 10 % Monocytes % 3 % Eosinophils % 1 % Basophils % 0 % Neutrophils # 5.6 (1.3-7.7) k/uL Lymphocytes # 0.7 L (1.0-4.8) k/uL Monocytes # 0.2 (0-1.0) k/uL Eosinophils # 0.1 (0-0.7) k/uL Basophils # 0.0 (0-0.2) k/uL Sodium 141 (137-145) mmol/L Potassium 4.6 (3.5-5.1) mmol/L Chloride 102 (98-107) mmol/L Carbon Dioxide 30 (22-30) mmol/L Anion Gap 9 mmol/L BUN 14 (7-17) mg/dL Creatinine 0.67 (0.52-1.04) mg/dL Est GFR (CKD-EPI)AfAm >90 (>60 ml/min/1.73 sqM) Est GFR (CKD-EPI)NonAf >90 (>60 ml/min/1.73 sqM) Glucose 100 H (74-99) mg/dL Calcium 9.6 (8.4-10.2) mg/dL Total Bilirubin 0.3 (0.2-1.3) mg/dL AST 29 (14-36) U/L ALT 13 (9-52) U/L Alkaline Phosphatase 79 (38-126) U/L Total Protein 8.6 H (6.3-8.2) g/dL Albumin 4.5 (3.5-5.0) g/dL Urine Color Urine Appearance (Clear) Urine pH (5.0-8.0) Ur Specific [place] (1.001-1.035) Urine Protein (Negative) Urine Glucose (UA) (Negative) Urine Ketones (Negative) Urine Blood (Negative) Urine Nitrite (Negative) Urine Bilirubin (Negative) Urine Urobilinogen (<2.0) mg/dL Ur Leukocyte Esterase (Negative) Urine Opiates Screen (NotDetected) Ur Oxycodone Screen (NotDetected) Urine Methadone Screen (NotDetected) Ur Propoxyphene Screen (NotDetected) Ur Barbiturates Screen (NotDetected) Phenytoin <3.0 ug/mL Valproic Acid <10.0 ug/mL Carbamazepine <3.0 ug/mL Oxcarbazepine 26.1 (10-35) ug/mL U Tricyclic Antidepress (NotDetected) Ur Phencyclidine Scrn (NotDetected) Ur Amphetamines Screen (NotDetected) U Methamphetamines Scrn (NotDetected) U Benzodiazepines Scrn (NotDetected) Urine Cocaine Screen (NotDetected) U Marijuana (THC) Screen (NotDetected) 02/06/19 02/06/19 Range/Units 12:00 12:00 WBC (3.8-10.6) k/uL RBC (3.80-5.40) m/uL Hgb (11.4-16.0) gm/dL Hct (34.0-46.0) % MCV (80.0-100.0) fL MCH (25.0-35.0) pg MCHC (31.0-37.0) g/dL RDW (11.5-15.5) % Plt Count (150-450) k/uL Neutrophils % % Lymphocytes % % Monocytes % % Eosinophils % % Basophils % % Neutrophils # (1.3-7.7) k/uL Lymphocytes # (1.0-4.8) k/uL Monocytes # (0-1.0) k/uL Eosinophils # (0-0.7) k/uL Basophils # (0-0.2) k/uL Sodium (137-145) mmol/L Potassium (3.5-5.1) mmol/L Chloride (98-107) mmol/L Carbon Dioxide (22-30) mmol/L Anion Gap mmol/L BUN (7-17) mg/dL Creatinine (0.52-1.04) mg/dL Est GFR (CKD-EPI)AfAm (>60 ml/min/1.73 sqM) Est GFR (CKD-EPI)NonAf (>60 ml/min/1.73 sqM) Glucose (74-99) mg/dL Calcium (8.4-10.2) mg/dL Total Bilirubin (0.2-1.3) mg/dL AST (14-36) U/L ALT (9-52) U/L Alkaline Phosphatase (38-126) U/L Total Protein (6.3-8.2) g/dL Albumin (3.5-5.0) g/dL Urine Color Colorless Urine Appearance Clear (Clear) Urine pH 7.0 (5.0-8.0) Ur Specific [place] 1.005 (1.001-1.035) Urine Protein Negative (Negative) Urine Glucose (UA) Negative (Negative) Urine Ketones Negative (Negative) Urine Blood Negative (Negative) Urine Nitrite Negative (Negative) Urine Bilirubin Negative (Negative) Urine Urobilinogen <2.0 (<2.0) mg/dL Ur Leukocyte Esterase Negative (Negative) Urine Opiates Screen Not Detected (NotDetected) Ur Oxycodone Screen Not Detected (NotDetected) Urine Methadone Screen Not Detected (NotDetected) Ur Propoxyphene Screen Not Detected (NotDetected) Ur Barbiturates Screen Not Detected (NotDetected) Phenytoin ug/mL Valproic Acid ug/mL Carbamazepine ug/mL Oxcarbazepine (10-35) ug/mL U Tricyclic Antidepress Not Detected (NotDetected) Ur Phencyclidine Scrn Not Detected (NotDetected) Ur Amphetamines Screen Not Detected (NotDetected) U Methamphetamines Scrn Not Detected (NotDetected) U Benzodiazepines Scrn Not Detected (NotDetected) Urine Cocaine Screen Not Detected (NotDetected) U Marijuana (THC) Screen Not Detected (NotDetected) - Radiology Data Normal CXR, chronic changes with no new suspicious infiltrate. Disposition Clinical Impression: Seizure disorder Disposition: HOME SELF-CARE Condition: Good Instructions (If sedation given, give patient instructions): Recurrent Seizures in Adults (ED) Additional Instructions: Follow-up with your neurologist and primary care physician. Follow-up with the regular scheduled appointment this week. Return to the emergency department if any alarming signs or symptoms occur. Is patient prescribed a controlled substance at d/c from ED?: No Referrals: Wilber Hatch DO [Primary Care Provider] - 1-2 days Time of Disposition: 13:01
--- NOTE | 2019-02-06 11:17 | XR ---
EXAMINATION TYPE: XR chest 2V DATE OF EXAM: 02/06/2019 COMPARISON: Chest x-ray January 19, 2018 HISTORY: Altered mental status and weakness TECHNIQUE: Frontal and lateral views of the chest are obtained. FINDINGS: There is chronic parenchymal change with persistent left suprahilar linear scarring and ba silar opacity favoring atelectasis. Right lung is clear. No pleural effusion or pneumothorax. The car diac silhouette size is stable and mildly enlarged. The osseous structures are intact. IMPRESSION: Chronic changes without new suspicious acute infiltrate.
[2019-02-06 11:34] LABS: Basophils % (A) 0 %; Eosinophils # (A) 0.1 k/uL (0-0.7); Eosinophils % (A) 1 %; HCT 38.8 % (34.0-46.0); HGB 12.6 gm/dL (11.4-16.0); Lymphocytes # (A) 0.7 k/uL (1.0-4.8); Lymphocytes % (A) 10 %; MCH 27.2 pg (25.0-35.0); MCHC 32.5 g/dL (31.0-37.0); MCV 83.8 fL (80.0-100.0); Mean Platelet Volume 7.1; Monocytes # (A) 0.2 k/uL (0-1.0); Monocytes % (A) 3 %; Neutrophils # (A) 5.6 k/uL (1.3-7.7); Neutrophils % (A) 84 %; Platelet Count 293 k/uL (150-450); RBC 4.63 m/uL (3.80-5.40); RDW 14.3 % (11.5-15.5); WBC 6.6 k/uL (3.8-10.6)
[2019-02-06 11:49] LABS: African American GFR (CKD) >90 (>60 ml/min/1.73 sqM); Albumin 4.5 g/dL (3.5-5.0); Anion Gap 9 mmol/L; Blood Urea Nitrogen 14 mg/dL (7-17); Calcium 9.6 mg/dL (8.4-10.2); Carbon Dioxide 30 mmol/L (22-30); Chloride 102 mmol/L (98-107); Glucose 100 mg/dL (74-99); Potassium 4.6 mmol/L (3.5-5.1); Sodium 141 mmol/L (137-145); Total Protein 8.6 g/dL (6.3-8.2)
[2019-02-06 11:50] LABS: ALT 13 U/L (9-52); AST 29 U/L (14-36); Alkaline Phosphatase 79 U/L (38-126); Carbamazepine (Tegretol) <3.0 ug/mL; Phenytoin (Dilantin) <3.0 ug/mL; Total Bilirubin 0.3 mg/dL (0.2-1.3)
[2019-02-06 11:52] LABS: Valproic Acid (Depakene) <10.0 ug/mL
[2019-02-06 12:31] LABS: Appearance,Urine Clear (Clear); Bilirubin,Urine Negative (Negative); Blood,Urine Negative (Negative); Color,Urine Colorless; Glucose,Urine (UA) Negative (Negative); Ketones,Urine Negative (Negative); Leukocyte Esterase,Urine Negative (Negative); Nitrite,Urine Negative (Negative); Protein,Urine Negative (Negative); Specific Gravity,Urine 1.005 (1.001-1.035); Urobilinogen,Urine <2.0 mg/dL (<2.0)
[2019-02-06 12:42] LABS: Amphetamine Screen,Urine Not Detected (NotDetected); Barbiturate Screen,Urine Not Detected (NotDetected); Benzodiazepines Screen,Urine Not Detected (NotDetected); Cocaine Screen,Urine Not Detected (NotDetected); Methadone Screen, Urine Not Detected (NotDetected); Opiate Screen,Urine Not Detected (NotDetected); Oxycodone Screen, Urine Not Detected (NotDetected); Phencyclidine Screen,Urine Not Detected (NotDetected); Tricyclic Antidepressant,Urine Not Detected (NotDetected); Urn Cannabinoid Scrn Not Detected (NotDetected)
[2019-02-06 13:32] VITALS: BP 146/76; PULSE 81; TEMP 98.2
== END 2019-02-06 13:25 | disposition home or self-care (01) ==
LOC: EC 10:02
DX: G40.909 Epilepsy, unspecified, not intractable, without status epilepticus (principal); I10 Essential (primary) hypertension; F32.9 Major depressive disorder, single episode, unspecified; G47.30 Sleep apnea, unspecified; Z79.899 Other long term (current) drug therapy; Z85.3 Personal history of malignant neoplasm of breast; Z90.12 Acquired absence of left breast and nipple; Z99.89 Dependence on other enabling machines and devices
CPT/HCPCS: 36415; 71046; 80053; 80156; 80164; 80183; 80185; 80306; 81003; 85025; 93005; 99285

== ENCOUNTER → 2019-02-20 | Outpatient (CLI) | payer MEDICARE, OTHER ==
--- NOTE | 2019-02-20 18:02 | MR ---
EXAMINATION TYPE: MR brain wo/w con DATE OF EXAM: 02/20/2019 COMPARISON: CT brain 01/19/2018 HISTORY: memory loss, aggression, combative TECHNIQUE: Multiplanar, multisequence images of the brain and brainstem is performed without and with IV contras t, utilizing 7.5 mL intravenous Gadavist . FINDINGS: Diffusion weighted images demonstrate no evidence of a recent infarct or other diffusion ab normality. There is no extra-axial fluid collection. Scattered subcortical, periventricular hyperint ensities on inversion recovery T2-weighted sequences present. Approximately 5-10 lesions. There is no hemorrhage. The ventricular system and cisternal spaces are normal in size and appearance. The bra in volume is age appropriate. Midline structures demonstrate normal morphology, there is a partially empty sella. The craniocervic al junction appears within normal limits. Post contrast images demonstrate no abnormal enhancement. The dural venous sinuses appear patent. The visualized sinuses are clear and the globes are intact. IMPRESSION: Nonspecific foci of white matter demyelination could be related to hypertension, migraine headaches, vasculitis, chronic small vessel ischemia.
== END | disposition home or self-care (01) ==
LOC: RADMRIMAIN 15:12
PROVIDERS: ATTEND Psychiatry & Neurology Neurology
DX: R90.82 White matter disease, unspecified (principal); C79.31 Secondary malignant neoplasm of brain; G40.909 Epilepsy, unspecified, not intractable, without status epilepticus
CPT/HCPCS: 70553; A9585

== ENCOUNTER → 2019-03-06 | Outpatient (CLI) | payer MEDICARE ==
--- NOTE | 2019-03-06 18:59 | BD ---
EXAMINATION TYPE: Axial Bone Density DATE OF EXAM: 03/06/2019 COMPARISON: NONE CLINICAL HISTORY: Postmenopausal with hormonal replacement therapy, breast carcinoma Height: 63 IN Weight: 155 LBS FRAX RISK QUESTIONS: Secondary Osteoporosis: 3. Menopause before 45: YES TOTAL HYST AGE 21 RISK FACTORS HISTORY OF: Active: LIMITED Postmenopausal woman: TOTAL HYST AGE 21 Frequent falls: YES FALLS DUE TO SEIZURES MEDICATIONS: Additional Medications: VIT D, METROPROLOL, KEPRA, CRANBERRY TABS, BISTARIL, LETRAZOLE,, OLANZAPINE, FOLIC ACID, POTASSIUM, LASIK, LISINOPRIL Additional History: BREAST CANCER WITH CHEMO AND RADIATION IN 2016 EXAM MEASUREMENTS: Bone mineral densitometry was performed using the [email or web address] System. Bone mineral density as measured about the Lumbar spine is: ----- L1-L4(G/cm2): 1.386 T Score Values are as follows: ----- L2: 1.1 ----- L3: 2.5 ----- L4: 2.3 ----- L1-L4: 1.7 Bone mineral density has: Decreased -0.3% since study of: 11/04/2016 Bone mineral density about the R hip (g/cm2): 1.189 Bone mineral density about the L hip (g/cm2): 1.267 T Score values are as follows: -----R Neck: 1.1 -----L Neck: 1.7 -----R Total: 2.1 -----L Total: 2.4 Bone mineral density has: Decreased -5.9% since study of: 11/04/2016 IMPRESSION: Normal (Values between +1 and -1 indicate normal bone mass). Consider repeating this study in 5 year s or sooner if there is some new clinical indication. NOTE: T-SCORE=SD OF THE YOUNG ADULT MEAN.
== END | disposition home or self-care (01) ==
LOC: RADBDWWP 09:27
PROVIDERS: ATTEND Internal Medicine Hematology & Oncology
DX: C50.112 Malignant neoplasm of central portion of left female breast (principal); N95.1 Menopausal and female climacteric states; Z79.890 Hormone replacement therapy
CPT/HCPCS: 77080

== ENCOUNTER → 2019-03-22 | Day surgery (SDC) | payer MEDICARE, OTHER ==
[2019-03-22 12:12] VITALS: PULSE 67; RESP 12; TEMP 98.6; BMI 29.7
--- NOTE | 2019-03-22 14:11 | USB ---
EXAMINATION TYPE: US biopsy breast add'l VAD RT, US biopsy breast add'l VAD RT, US biopsy breast VAD RT, MG diagnostic mammo RT wo CAD DATE OF EXAM: 03/22/2019 CLINICAL HISTORY: r92.8 abn mammogram. TECHNIQUE: Ultrasound guided core biopsy of right breast. COMPARISON: NONE FINDINGS: The procedure of ultrasound guided core biopsy was explained to the patient. Benefits, alternatives, and risks were discussed. An informed consent was then obtained. Preprocedural timeout was performed. Site A (9:00 A): The patient was placed in supine positioning for imaging and for the procedure. The overlying skin was prepped and draped in usual sterile fashion. Lidocaine buffered with bicarbonate was used as anesthetic into the skin and subcutaneous tissue up to a 0.5 x 0.8 x 0.6 cm mass at the position in the right breast. Under ultrasound guidance, a 12-gauge vacuum assisted biopsy gun device was used to obtain 4 core samples. Following this, a wing shaped biopsy marker was left at the site of biopsy. Site B (9:00 BC): The patient was placed in supine positioning for imaging and for the procedure. The overlying skin was prepped and draped in usual sterile fashion. Lidocaine buffered with bicarbonate was used as anesthetic into the skin and subcutaneous tissue up to a 3.9 x 3.0 x 1.4 cm mass at the 9:00 position in the right breast. Under ultrasound guidance, a 12-gauge vacuum assisted biopsy gun device was used to obtain 5 core samples. Following this, a coil shaped biopsy marker was left at the site of biopsy. Site C (11:00 BC): The patient was placed in supine positioning for imaging and for the procedure. The overlying skin was prepped and draped in usual sterile fashion. Lidocaine buffered with bicarbonate was used as anesthetic into the skin and subcutaneous tissue up to a 0.6 x 0.8 x 0.4 cm mass at the 11:00 position in the right breast. Under ultrasound guidance, a 12-gauge vacuum assisted biopsy gun device was used to obtain 4 core samples. Following this, a ribbon shaped biopsy marker was left at the site of biopsy. Biopsy markers appear appropriately placed on post biopsy mammogram. The patient tolerated the procedure well without any immediate complication. The patient was kept in the radiology department for short stay after the procedure and then discharged home in stable condition. IMPRESSION: Successful, uncomplicated ultrasound guided core biopsy of 3 sites in the right breast, full pathology results to follow. Pathology Results: Benign A. RIGHT BREAST, SITE A 9:00 ZONE A, CORE BIOPSY: Benign fibroadipose tissue with focal scar/fibrosis and prominent adipose tissue, cannot exclude a lipoma. Breast elements are not identified. B. RIGHT BREAST, SITE B 9:00 ZONE B/C, CORE BIOPSY: Fibrocystic changes including fibrosis, cysts and sclerosing adenosis. C. RIGHT BREAST, SITE C 11:00 ZONE B/C, CORE BIOPSY: Fibroadenoma/fibroadenomatoid hyperplasia in a background of fibrocystic changes including fibrosis and sclerosing adenosis with rare microcalcifications identified. Recommendation Follow up mammogram of the right breast in 6 months. CHRISD
[2019-03-22 14:20] VITALS: BP 146/86
== END ==
LOC: RADUSWWP 11:48
PROVIDERS: ATTEND Surgery
DX: N60.31 Fibrosclerosis of right breast (principal); N60.21 Fibroadenosis of right breast; D24.1 Benign neoplasm of right breast; R92.0 Mammographic microcalcification found on diagnostic imaging of breast; R92.8 Other abnormal and inconclusive findings on diagnostic imaging of breast
CPT/HCPCS: 88305; 77065; 19083; 19084 ×2; A4648; J2001

== ENCOUNTER 2019-05-03 15:19 | Emergency (ER) | payer MEDICARE, OTHER ==
[2019-05-03 15:24] VITALS: BP 147/99; PULSE 79; RESP 20; TEMP 98.9
--- NOTE | 2019-05-03 16:20 | ED ---
General Adult HPI - General Chief complaint: Eye Problems Stated complaint: Swollen/red eye Time Seen by Provider: 05/03/19 15:26 Source: patient, RN notes reviewed Mode of arrival: ambulatory Limitations: no limitations - History of Present Illness Initial comments: 58-year-old female presents to the emergency department for chief complaint of red left eye. States this started a couple days ago. She is denying any symptoms. Denies any pain or injury. Patient denies any visual changes. Caregiver is at bedside and stated she wanted to make sure this was okay.Patient has no other complaints at this time including shortness of breath, chest pain, abdominal pain, nausea or vomiting, headache, or visual changes. - Related Data Home Medications Medication Instructions Recorded Confirmed Furosemide [Lasix] 40 mg PO DAILY 01/04/14 05/03/19 Metoprolol Tartrate [Lopressor] 50 mg PO BID 01/04/14 05/03/19 Potassium Chloride [Klor-Con 10] 10 meq PO DAILY 01/04/14 05/03/19 Folic Acid 0.5 mg PO DAILY 12/26/15 05/03/19 Letrozole [Femara] 2.5 mg PO DAILY 06/07/17 05/03/19 OXcarbazepine [Trileptal] 300 mg PO TID 10/13/17 05/03/19 Lisinopril 30 mg PO DAILY 01/19/18 05/03/19 OLANZapine [ZyPREXA Zydis] 10 mg PO HS 01/19/18 05/03/19 Cholecalciferol (Vitamin D3) 2,000 unit PO DAILY 02/06/19 05/03/19 [Vitamin D3] hydrOXYzine PAMOATE [Vistaril] 25 mg PO BID 02/06/19 05/03/19 Cranberry Fruit Extract [Cranberry] 200 mg PO DAILY 03/07/19 05/03/19 Allergies Allergy/AdvReac Type Severity Reaction Status Date / Time No Known Allergies Allergy Verified 05/03/19 15:24 Review of Systems ROS Statement: Those systems with pertinent positive or pertinent negative responses have been documented in the HPI. ROS Other: All systems not noted in ROS Statement are negative. Past Medical History Past Medical History: No Reported History Additional Past Medical History / Comment(s): DEVLOPMENTALY Delayed, SAYS "YES, FOR EVERYTHING," HASHIMOTOS, , bilateral GLAUCOMA. USES C-PAP. chronic CELLULITIS LOWER LEGS, HAS EDEMA, WEARS SUPPORT HOSE. LT BREAST CA CURRENTLY, with mastectomy and receiving chemo. History of Any Multi-Drug Resistant Organisms: None Reported Past Surgical History: Breast Surgery, Hysterectomy Additional Past Surgical History / Comment(s): LT BREAST biospy- previous had breast procedures in past-not sure what, L breast mastectomy and lymphadenectomy, R chest power port. Past Anesthesia/Blood Transfusion Reactions: No Reported Reaction Additional Past Anesthesia/Blood Transfusion Reaction / Comment(s): IV started by anesthesia. diff getting IV in for last procedure. Took > 1 hr and need Ultrasound to find vein per guardian. Past Psychological History: Depression Smoking Status: Never smoker Past Alcohol Use History: None Reported Past Drug Use History: None Reported - Past Family History Mother Family Medical History: Cancer Additional Family Medical History / Comment(s): , lung ca Father Family Medical History: Hypertension Additional Family Medical History / Comment(s): Cellulitis. Father at the age of 92yrs. General Exam Limitations: no limitations General appearance: alert, in no apparent distress Head exam: Present: atraumatic, normocephalic, normal inspection Eye exam: Present: normal appearance, PERRL, EOMI, conjunctival injection (Patient has subconjunctival hemorrhage noted to the left eye. This is about 40% in the lower aspect.). Absent: scleral icterus, periorbital swelling Expanded Eyelids: Normal Inspection: Bilateral Pupils: Regular, Round: Bilateral Sclera/Conjunctival: Hemorrhage: Left Anterior chamber: Normal Inspection: Bilateral IOP (R) in mmH IOP (L) in mmH IOP measured with: [employer] ENT exam: Present: normal exam, mucous membranes moist Neck exam: Present: normal inspection, full ROM. Absent: tenderness, meningismus, lymphadenopathy Respiratory exam: Present: normal lung sounds bilaterally. Absent: respiratory distress, wheezes, rales, rhonchi, stridor Cardiovascular Exam: Present: regular rate, normal rhythm, normal heart sounds. Absent: systolic murmur, diastolic murmur, rubs, gallop, clicks Neurological exam: Present: alert, oriented X3, CN II-XII intact Psychiatric exam: Present: normal affect, normal mood Course Vital Signs 05/03/19 15:21 Temperature 98.9 F Pulse Rate 79 Respiratory 20 Rate Blood Pressure 147/99 O2 Sat by Pulse 100 Oximetry Medical Decision Making - Medical Decision Making 58-year-old female presents to the emergency department for a chief complaint of redness of the left eye. This has been evident for a few days. No injuries. On exam she does have subconjunctival hemorrhage noted. Vitals are stable. Pressures in the eye are within normal limits. Discussed with patient that this could have been from coughing or sneezing. Discussed following up with primary care and ophthalmology in one to 2 days. Discussed returning if she has any worsening symptoms. Disposition Clinical Impression: Subconjunctival hemorrhage Disposition: HOME SELF-CARE Condition: Good Instructions (If sedation given, give patient instructions): Subconjunctival Hemorrhage (ED) Additional Instructions: Please follow up with primary care in 1-2 days. Please return to the emergency department if you have any worsening symptoms. Is patient prescribed a controlled substance at d/c from ED?: No Referrals: Wilber Hatch DO [Primary Care Provider] - 1-2 days Domniga Calvert MD [STAFF PHYSICIAN] - 1-2 days Time of Disposition: 16:16
== END 2019-05-03 16:23 | disposition home or self-care (01) ==
LOC: EC 15:19
DX: H11.32 Conjunctival hemorrhage, left eye (principal); Z79.899 Other long term (current) drug therapy; Z85.3 Personal history of malignant neoplasm of breast; Z90.12 Acquired absence of left breast and nipple
CPT/HCPCS: 99283

== ENCOUNTER → 2020-02-06 | Outpatient (CLI) | payer MEDICARE, OTHER ==
--- NOTE | 2020-02-07 09:49 | MM ---
Reason for exam: additional evaluation requested from prior study. Last mammogram was performed 11 months ago. History: Patient is postmenopausal, has history of breast cancer at age 55, and is nulliparous. Family history of breast cancer in mother at age 65. Benign US biopsy breast VAD RT of the right breast, March 22, 2019. Benign US biopsy breast add'l VAD RT of the right breast, March 22, 2019. Benign US biopsy breast add'l VAD RT of the right breast, March 22, 2019. Mastectomy of the left breast, January 28, 2016. Malignant MG pre op needle loc LT of the left breast, January 15, 2016. Malignant MG stereo VAD BX LT of the left breast, November 17, 2015. Chemotherapy, 2015. Radiation therapy, 2015. Benign MG stereo VAD BX LT of the left breast, February 04, 2014. Excisional biopsy of the right breast, March 06, 2008. Benign core biopsy of the right breast, February 18, 1998. Excisional biopsy of the left breast. Taking antineoplastic for 4 years beginning at age 55. Physical Findings: Nurse Summary: 1cm nodule in the right breast at 12 o'clock and 3 o'clock (nurse mj). MG 3D Diag Mammo W/Cad RT CC and MLO view(s) were taken of the right breast. Prior study comparison: March 22, 2019, right breast MG diagnostic mammo RT wo CAD. January 11, 2019, right breast MG 3d diag mammo w/cad RT. December 20, 2017, right breast MG diagnostic mammo RT w CAD. December 14, 2016, right breast MG 3d diag mammo w/cad RT. The breast tissue is heterogeneously dense. This may lower the sensitivity of mammography. Previous mammotome biopsy in the right breast multiple clips. 3 o'clock masses and distortion redemonstrated. Two clips here. One clip placed between 2016 and 2017. No pathology or images to confirm appropriate sampling are available. Two palpable markers. These results were verbally communicated with the patient and result sheet given to the patient on 02/06/20. ASSESSMENT: Incomplete: need additional imaging evaluation, BI-RAD 0 RECOMMENDATION: Ultrasound of the right breast. (whole breast, particular attention to the two palpable sites) Patient's caregiver could not stay for ultrasound. Scheduled fo return 02/15/20 at 1:40.
== END | disposition home or self-care (01) ==
LOC: RADMAMWWP 13:03
PROVIDERS: ATTEND Internal Medicine Hematology & Oncology
DX: R92.8 Other abnormal and inconclusive findings on diagnostic imaging of breast (principal); Z85.3 Personal history of malignant neoplasm of breast
CPT/HCPCS: 77065; G0279; 77061

== ENCOUNTER → 2020-02-15 | Outpatient (CLI) | payer MEDICARE, OTHER ==
--- NOTE | 2020-02-18 08:10 | USB ---
Reason for exam: additional evaluation requested from prior study. History: Patient is postmenopausal, has history of breast cancer at age 55, and is nulliparous. Family history of breast cancer in mother at age 65. Benign US biopsy breast VAD RT of the right breast, March 22, 2019. Benign US biopsy breast add'l VAD RT of the right breast, March 22, 2019. Benign US biopsy breast add'l VAD RT of the right breast, March 22, 2019. Mastectomy of the left breast, January 28, 2016. Malignant MG pre op needle loc LT of the left breast, January 15, 2016. Malignant MG stereo VAD BX LT of the left breast, November 17, 2015. Chemotherapy, 2016. Radiation therapy, 2015. Benign MG stereo VAD BX LT of the left breast, February 04, 2014. Excisional biopsy of the right breast, March 06, 2008. Benign core biopsy of the right breast, February 18, 1998. Excisional biopsy of the left breast. Taking antineoplastic for 4 years beginning at age 55. US Breast RT Right complete breast ultrasound includes all four quadrants, the retroareolar region and axilla. Finding demonstrates a 0.7 x 0.5 x 0.6cm hypoechoic lesion at 2 o'clock, stable, previously biopsied this region, a 0.6 x 0.4 x 0.7cm hypoechoic lesion at 2 o'clock, stable, previously biopsied this region, a 0.7 x 0.4 x 0.7cm hypoechoic lesion at 5 o'clock, stable, a 0.6 x 0.5 x 0.5cm hypoechoic lesion at 9 o'clock, stable, a 3.6 x 1.2 x 3.8cm mixed lesion at 9 o'clock and a 0.6 x 0.5 x 0.5cm hypoechoic lesion at 11 o'clock, stable. These results were verbally communicated with the patient and result sheet given to the patient on 02/15/20. ASSESSMENT: Probably benign, BI-RAD 3 RECOMMENDATION: Follow-up diagnostic mammogram of the right breast in 6 months.
== END | disposition home or self-care (01) ==
LOC: RADUSWWP 13:45
PROVIDERS: ATTEND Radiology Diagnostic Radiology
DX: R92.8 Other abnormal and inconclusive findings on diagnostic imaging of breast (principal)

== ENCOUNTER 2020-04-01 20:08 | Emergency (ER) | payer MEDICARE, OTHER ==
[2020-04-01] MEDS ORDERED: LIDOCAINE 1% INJ 10MG/ML (20 ML MDV) SQ ONE (20:31)
[2020-04-01] MEDS ORDERED: OLANZapine 10 MG TAB PO STA (20:33)
--- NOTE | 2020-04-01 20:37 | ED ---
Head Injury HPI - General Chief complaint: Head Injury Stated complaint: Head injury Time Seen by Provider: 04/01/20 20:24 Source: patient Mode of arrival: wheelchair Limitations: no limitations - History of Present Illness Initial comments: Patient is a [id number] female with history of developmental delay presenting to emergency Department with the chief complaint of head injury. Caregiver is also present in the examination room. Caregiver states the patient was in her shower when she slipped and fell forward causing a laceration to her forehead. Caregiver states she is unaware if there was loss of consciousness. Patient is not able to answer questions due to her developmental delay. Caregiver states the patient appears nervous as she has yet to receive her night dose of olanzapine. Caregiver states tetanus is up-to-date. - Related Data Home Medications Medication Instructions Recorded Confirmed Furosemide [Lasix] 40 mg PO DAILY 01/04/14 04/01/20 Metoprolol Tartrate [Lopressor] 50 mg PO BID 01/04/14 04/01/20 Folic Acid 0.5 mg PO DAILY 12/26/15 04/01/20 Letrozole [Femara] 2.5 mg PO DAILY 06/07/17 04/01/20 OXcarbazepine [Trileptal] 300 mg PO TID 10/13/17 04/01/20 Cholecalciferol (Vitamin D3) 2,000 unit PO DAILY 02/06/19 04/01/20 [Vitamin D3] hydrOXYzine pamoate [Vistaril] 25 mg PO BID 02/06/19 04/01/20 Bimatoprost [Lumigan .01% Ophth 1 drop BOTH EYES DIRECTED 04/01/20 04/01/20 Soln] Melatonin 10 mg PO HS 04/01/20 04/01/20 OLANZapine ODT [ZyPREXA ZYDIS] 10 mg PO BID PRN 04/01/20 04/01/20 Allergies/Adverse reactions: Allergies Allergy/AdvReac Type Severity Reaction Status Date / Time No Known Allergies Allergy Verified 04/01/20 21:10 Review of Systems ROS Statement: Those systems with pertinent positive or pertinent negative responses have been documented in the HPI. ROS Other: All systems not noted in ROS Statement are negative. Past Medical History Past Medical History: No Reported History Additional Past Medical History / Comment(s): DEVLOPMENTALY Delayed, SAYS "YES, FOR EVERYTHING," HASHIMOTOS, , bilateral GLAUCOMA. USES C-PAP. chronic CELLULITIS LOWER LEGS, HAS EDEMA, WEARS SUPPORT HOSE. LT BREAST CA CURRENTLY, with mastectomy and receiving chemo. History of Any Multi-Drug Resistant Organisms: None Reported Past Surgical History: Breast Surgery, Hysterectomy Additional Past Surgical History / Comment(s): LT BREAST biospy- previous had breast procedures in past-not sure what, L breast mastectomy and lymphadenectomy, R chest power port. Past Anesthesia/Blood Transfusion Reactions: No Reported Reaction Additional Past Anesthesia/Blood Transfusion Reaction / Comment(s): IV started by anesthesia. diff getting IV in for last procedure. Took > 1 hr and need Ultrasound to find vein per guardian. Past Psychological History: Depression Past Alcohol Use History: None Reported Past Drug Use History: None Reported - Past Family History Mother Family Medical History: Cancer Additional Family Medical History / Comment(s): , lung ca Father Family Medical History: Hypertension Additional Family Medical History / Comment(s): Cellulitis. Father at the age of 92yrs. General Exam Limitations: no limitations General appearance: alert, in no apparent distress Head exam: Present: normocephalic, normal inspection. Absent: atraumatic (Forehead laceration measuring approximately 5 cm in length), other (Negative Glover sign, negative raccoon eyes, negative hemotympanum.) Eye exam: Present: normal appearance, PERRL, EOMI Pupils: Present: normal accommodation ENT exam: Present: normal exam, normal oropharynx, mucous membranes moist Neck exam: Present: normal inspection, full ROM. Absent: tenderness Respiratory exam: Present: normal lung sounds bilaterally. Absent: respiratory distress, wheezes Cardiovascular Exam: Present: regular rate, normal rhythm, normal heart sounds Extremities exam: Present: normal inspection, full ROM. Absent: tenderness Back exam: Present: normal inspection, full ROM. Absent: tenderness Neurological exam: Present: alert Psychiatric exam: Present: normal affect, normal mood Skin exam: Present: warm, dry, intact, normal color Procedures - Laceration Laceration #1 Consent Obtained: verbal consent Indication: laceration Site: face (Forehead) Size (cm): 5 Description: linear, clean Depth: simple, single layer Sedation/Analgesia: none Anesthetic Used: lidocaine 1% Anesthesia Technique: local infiltration Amount (mls): 5 Pre-repair: irrigated extensively, deep structures intact Type of Sutures: nylon Size of Sutures: 4-0 Number of Sutures: 6 Technique: simple, interrupted Patient Tolerated Procedure: well, no complications Medical Decision Making - Medical Decision Making patient is a 5-year-old female with developmental delay presenting to emergency Department with a chief complaint of head injury. Caregiver brought the patient to the ED. Patient is acting at baseline according to the caregiver. CT of brain and C-spine shows no acute fractures, dislocations, tripping or hemorrhage. On exam she does have a laceration to forehead measuring approximate 5 cm in length which is superficial linear. Laceration was thoroughly irrigated and repaired with 6 sutures. Patient tolerated procedure well. Caregiver advised to follow proper laceration instructions. Strict return parameters were thoroughly discussed with caregiver is understanding and agreeable. Case discussed physician. Disposition Clinical Impression: Laceration, Head injury due to trauma Disposition: HOME SELF-CARE Condition: Stable Instructions (If sedation given, give patient instructions): Care For Your Stitches (DC), Laceration (DC) Additional Instructions: Return to emergency Department in 7-10 days for suture removal. Follow with primary care physician. Is patient prescribed a controlled substance at d/c from ED?: No Referrals: Wilber Hatch DO [Primary Care Provider] - 1-2 days Time of Disposition: 22:00
--- NOTE | 2020-04-01 21:49 | CT ---
EXAMINATION TYPE: CT brain terryine wo con DATE OF EXAM: 04/01/2020 COMPARISON: CT brain 01/19/2018 HISTORY: fall. head lac to forehead, pain CT DLP: 1350.3 mGycm Automated exposure control for dose reduction was used. TECHNIQUE: CT scan of the head and cervical spine are performed without contrast. FINDINGS: There is no acute intracranial hemorrhage, mass effect, or midline shift identified. The ventricles and sulci are within normal limits in size. The globes are intact and the visualized sin uses are clear. Frontal laceration noted incidentally. Cervical spine is visualized in its entirety from C1 through upper thoracic levels and demonstrates s atisfactory alignment without evidence of acute fracture or dislocation. Prevertebral soft tissue ap pears within normal limits. The C1-C2 articulation is unremarkable. IMPRESSION: 1. There is no acute fracture or dislocation evident in the cervical spine. 2. No acute intracranial hemorrhage, mass effect, or midline shift is seen.
[2020-04-01 22:35] VITALS: PULSE 80; RESP 16
== END 2020-04-01 22:35 | disposition home or self-care (01) ==
LOC: EC 20:08
DX: S01.81XA Laceration without foreign body of other part of head, initial encounter (principal); Z79.899 Other long term (current) drug therapy; Z85.3 Personal history of malignant neoplasm of breast; Z90.12 Acquired absence of left breast and nipple; W01.0XXA Fall on same level from slipping, tripping and stumbling without subsequent striking against object, initial encounter; Y93.E1 Activity, personal bathing and showering
CPT/HCPCS: 72125; 70450; 99283; 12013; J2001

== ENCOUNTER → 2020-08-07 | Outpatient (CLI) | payer MEDICARE, OTHER ==
--- NOTE | 2020-08-08 09:27 | MM ---
Reason for exam: additional evaluation requested from prior study. Last mammogram was performed 6 months ago. History: Patient is postmenopausal, has history of breast cancer at age 55, and is nulliparous. Family history of breast cancer in mother at age 65. Benign US biopsy breast VAD RT of the right breast, March 22, 2019. Benign US biopsy breast add'l VAD RT of the right breast, March 22, 2019. Benign US biopsy breast add'l VAD RT of the right breast, March 22, 2019. Mastectomy of the left breast, January 28, 2016. Malignant MG pre op needle loc LT of the left breast, January 15, 2016. Malignant MG stereo VAD BX LT of the left breast, November 17, 2015. Chemotherapy, 2015. Radiation therapy, 2015. Benign MG stereo VAD BX LT of the left breast, February 04, 2014. Excisional biopsy of the right breast, March 06, 2008. Benign core biopsy of the right breast, February 18, 1998. Excisional biopsy of the left breast. Taking antineoplastic for 4 years beginning at age 55. Physical Findings: Nurse Summary: 0.5 x 0.5cm nodule in the right breast at 2/3 o'clock (nurse ts). MG 3D Diag Mammo W/Cad RT CC and MLO view(s) were taken of the right breast. Prior study comparison: February 06, 2020, right breast MG 3d diag mammo w/cad RT. March 22, 2019, right breast MG diagnostic mammo RT wo CAD. The breast tissue is heterogeneously dense. This may lower the sensitivity of mammography. Previous mammotome biopsy in the right breast x 5. There is chronic nodularity in the right breast. There is no discrete abnormality. These results were verbally communicated with the patient and result sheet given to the patient on 08/07/20. ASSESSMENT: Benign, BI-RAD 2 RECOMMENDATION: Follow-up diagnostic mammogram of the right breast in 1 year.
--- NOTE | 2020-08-08 09:39 | USB ---
Reason for exam: additional evaluation requested from prior study. History: Patient is postmenopausal, has history of breast cancer at age 55, and is nulliparous. Family history of breast cancer in mother at age 65. Benign US biopsy breast VAD RT of the right breast, March 22, 2019. Benign US biopsy breast add'l VAD RT of the right breast, March 22, 2019. Benign US biopsy breast add'l VAD RT of the right breast, March 22, 2019. Mastectomy of the left breast, January 28, 2016. Malignant MG pre op needle loc LT of the left breast, January 15, 2016. Malignant MG stereo VAD BX LT of the left breast, November 17, 2015. Chemotherapy, 2016. Radiation therapy, 2016. Benign MG stereo VAD BX LT of the left breast, February 04, 2014. Excisional biopsy of the right breast, March 06, 2008. Benign core biopsy of the right breast, February 18, 1998. Excisional biopsy of the left breast. Taking antineoplastic for 4 years beginning at age 55. US Breast RT Right complete breast ultrasound includes all four quadrants, the retroareolar region and axilla. Finding demonstrates several oval, hypoechoic lesions measuring 7 x 4 x 6mm at 2 o'clock seen on previous, 8 x 4 x 7mm at 2 o'clock seen on previous, 11 x 4 x 12mm at 5 o'clock, new, 11 x 5 x 8mm at 5 o'clock, new, 8 x 4 x 7mm at 7 o'clock, new debris filled cyst and 7 x 5 x 9mm at 9 o'clock, clip visualized, a 34 x 12 x 31mm oval, solid lesion at 9 o'clock and a 13 x 5 x 9mm new, oval, solid lesion at 11 o'clock. These results were verbally communicated with the patient and result sheet given to the patient on 08/07/20. ASSESSMENT: Probably benign, BI-RAD 3 RECOMMENDATION: Ultrasound of the right breast in 6 months.
== END | disposition home or self-care (01) ==
LOC: RADMAMWWP 13:48
PROVIDERS: ATTEND Internal Medicine Hematology & Oncology
DX: Z08 Encounter for follow-up examination after completed treatment for malignant neoplasm (principal); Z85.3 Personal history of malignant neoplasm of breast
CPT/HCPCS: 77065; 76641; G0279; 77061

== ENCOUNTER → 2021-06-11 | Outpatient (CLI) | payer MEDICARE, OTHER ==
--- NOTE | 2021-06-12 09:26 | MM ---
Reason for exam: follow-up at short interval from prior study. Last mammogram was performed 10 months ago. History: Patient is postmenopausal, has history of breast cancer at age 55, and is nulliparous. Family history of breast cancer in mother at age 65. Benign US biopsy breast VAD RT of the right breast, March 22, 2019. Benign US biopsy breast add'l VAD RT of the right breast, March 22, 2019. Benign US biopsy breast add'l VAD RT of the right breast, March 22, 2019. Mastectomy of the left breast, January 28, 2016. Malignant MG pre op needle loc LT of the left breast, January 15, 2016. Malignant MG stereo VAD BX LT of the left breast, November 17, 2015. Chemotherapy, 2015. Radiation therapy, 2015. Benign MG stereo VAD BX LT of the left breast, February 04, 2014. Excisional biopsy of the right breast, March 06, 2008. Benign core biopsy of the right breast, February 18, 1998. Excisional biopsy of the left breast. Taking antineoplastic for 5 years beginning at age 55. Physical Findings: Nurse Summary: 0.5cm nodule in the right breast at 2 o'clock (nurse TM). MG 3D Diag Mammo W/Cad RT CC and MLO view(s) were taken of the right breast. Prior study comparison: August 07, 2020, right breast MG 3d diag mammo w/cad RT. February 15, 2020, right breast US breast RT. January 11, 2019, right breast MG 3d diag mammo w/cad RT. December 14, 2016, right breast MG 3d diag mammo w/cad RT. The breast tissue is heterogeneously dense. This may lower the sensitivity of mammography. Previous mammotome biopsy in the right breast x 4. Architectural distortion with associated 7mm nodularity unchanged back to at least 2017. No significant new findings when compared with previous films. These results were verbally communicated with the patient and result sheet given to the patient on 06/11/21. ASSESSMENT: Incomplete: need additional imaging evaluation, BI-RAD 0 RECOMMENDATION: Ultrasound of the right breast.
--- NOTE | 2021-06-12 09:32 | USB ---
Reason for exam: additional evaluation requested from abnormal screening. History: Patient is postmenopausal, has history of breast cancer at age 55, and is nulliparous. Family history of breast cancer in mother at age 65. Benign US biopsy breast VAD RT of the right breast, March 22, 2019. Benign US biopsy breast add'l VAD RT of the right breast, March 22, 2019. Benign US biopsy breast add'l VAD RT of the right breast, March 22, 2019. Mastectomy of the left breast, January 28, 2016. Malignant MG pre op needle loc LT of the left breast, January 15, 2016. Malignant MG stereo VAD BX LT of the left breast, November 17, 2015. Chemotherapy, 2016. Radiation therapy, 2015. Benign MG stereo VAD BX LT of the left breast, February 04, 2014. Excisional biopsy of the right breast, March 06, 2008. Benign core biopsy of the right breast, February 18, 1998. Excisional biopsy of the left breast. Taking antineoplastic for 5 years beginning at age 55. US Breast RT Right complete breast ultrasound includes all four quadrants, the retroareolar region and axilla. Finding demonstrates a 0.8 x 0.4 x 0.6cm hypoechoic lesion at 3 o'clock stable and palpable back to at least 02/15/20, a 0.5 x 0.4 x 0.6cm hypoechoic lesion at 3 o'clock stable and palpable back to at least 02/15/20, a 1.3 x 0.8 x 0.8cm hypoechoic lesion at 5 o'clock versus 1.2 x 1.1 x 0.4cm stable to slightly larger, 6 month follow up recommended, a 1.1 x 0.8 x 0.4cm hypoechoic lesion at 7 o'clock probable debris filled cyst, benign, a 3.9 x 3.2 x 1.2cm isoechoic, stable lesion at 9 o'clock, a 1.2 x 0.9 x 0.6cm hypoechoic lesion at 10 o'clock probable debris filled cyst and a 0.4 x 0.6 x 0.5cm hypoechoic lesion at 11 o'clock, maybe seen on 02/14/17, 6 month follow up recommended. These results were verbally communicated with the patient and result sheet given to the patient on 06/11/21. ASSESSMENT: Probably benign, BI-RAD 3 RECOMMENDATION: Ultrasound of the right breast in 6 months. (5 o'clock and 11 o'clock)
== END | disposition home or self-care (01) ==
LOC: RADMAMWWP 13:42
PROVIDERS: ATTEND Internal Medicine Hematology & Oncology
DX: N63.12 Unspecified lump in the right breast, upper inner quadrant (principal); Z85.3 Personal history of malignant neoplasm of breast
CPT/HCPCS: 77065; 76641; G0279; 77061

== ENCOUNTER → 2021-09-18 | Outpatient (CLI) | payer MEDICARE, OTHER ==
[2021-09-18 12:29] LABS: Appearance,Urine Clear (Clear); Bilirubin,Urine Negative (Negative); Blood,Urine Negative (Negative); Color,Urine Yellow; Glucose,Urine (UA) Negative (Negative); Ketones,Urine Negative (Negative); Leukocyte Esterase,Urine Trace (Negative); Mucus,Urine Rare /hpf; Nitrite,Urine Negative (Negative); Protein,Urine Negative (Negative); RBC,Urine <1 /hpf (0-5); Specific Gravity,Urine 1.017 (1.001-1.035); Urobilinogen,Urine <2.0 mg/dL (<2.0); WBC,Urine 4 /hpf (0-5)
[2021-09-18 18:14] LABS: HCT 37.5 % (37.2-46.3); HGB 11.8 g/dL (12.0-15.0); MCH 27.2 pg (27.0-32.0); MCHC 31.5 g/dL (32.0-37.0); MCV 86.4 fL (80.0-97.0); Mean Platelet Volume 9.9 fL (9.5-12.2); Platelet Count 287 X 10*3/uL (140-440); RBC 4.34 X 10*6/uL (4.10-5.20); RDW 13.7 % (11.5-14.5); WBC 4.81 X 10*3/uL (4.50-10.00)
[2021-09-18 18:42] LABS: ALT 13 U/L (8-44); AST 20 U/L (13-35); African American GFR (CKD) 97.1 (60.0-200.0); Albumin 4.1 g/dL (3.8-4.9); Albumin/Globulin Ratio 1.09 (1.60-3.17); Alkaline Phosphatase 69 U/L (41-126); BUN/Creat Ratio 15.35 Ratio (12.00-20.00); Blood Urea Nitrogen 11.7 mg/dL (9.0-27.0); Calcium 9.2 mg/dL (8.7-10.3); Chloride 99 mmol/L (96-109); Chol/HDL Ratio 3.85 Ratio; Globulin 3.8 g/dL (1.6-3.3); Glucose 90 mg/dL (70-110); LDL Cholesterol,Calculated 121.1 mg/dL (0.0-131.0); Non-African American GFR(CKD) 83.8 (60.0-200.0); Potassium 4.4 mmol/L (3.5-5.5); Sodium 138 mmol/L (135-145); Total Bilirubin <0.20 mg/dL (0.30-1.20); Total Protein 7.9 g/dL (6.2-8.2)
== END | disposition home or self-care (01) ==
LOC: LABWHC1 10:14
PROVIDERS: ATTEND Psychiatry & Neurology Neurology
DX: Z00.01 Encounter for general adult medical examination with abnormal findings (principal); G40.909 Epilepsy, unspecified, not intractable, without status epilepticus
CPT/HCPCS: 36415; 80053; 80061; 80183; 81001; 82306; 83036; 84443; 85027

== ENCOUNTER → 2021-12-10 | Outpatient (CLI) | payer MEDICARE, OTHER ==
--- NOTE | 2021-12-11 08:38 | MM ---
Reason for exam: follow-up at short interval from prior study. Last mammogram was performed 6 months ago. History: Patient is postmenopausal, has history of breast cancer at age 55, and is nulliparous. Family history of breast cancer in mother at age 65. Benign US biopsy breast VAD RT of the right breast, March 22, 2019. Benign US biopsy breast add'l VAD RT of the right breast, March 22, 2019. Benign US biopsy breast add'l VAD RT of the right breast, March 22, 2019. Mastectomy of the left breast, January 28, 2016. Malignant MG pre op needle loc LT of the left breast, January 15, 2016. Malignant MG stereo VAD BX LT of the left breast, November 17, 2015. Chemotherapy, 2015. Radiation therapy, 2015. Benign MG stereo VAD BX LT of the left breast, February 04, 2014. Excisional biopsy of the right breast, March 06, 2008. Benign core biopsy of the right breast, February 18, 1998. Excisional biopsy of the left breast. Taking antineoplastic for 5 years beginning at age 55. Physical Findings: A clinical breast exam by your physician is recommended on an annual basis and results should be correlated with mammographic findings. MG 3D Diag Mammo W/Cad RT CC and MLO view(s) were taken of the right breast. Prior study comparison: August 07, 2020, right breast MG 3d diag mammo w/cad RT. February 06, 2020, right breast MG 3d diag mammo w/cad RT. January 11, 2019, right breast MG 3d diag mammo w/cad RT. December 20, 2017, right breast MG diagnostic mammo RT w CAD. The breast tissue is heterogeneously dense. This may lower the sensitivity of mammography. No significant new findings when compared with previous films. Results were given to the patient verbally at the time of the exam. ASSESSMENT: Benign, BI-RAD 2 RECOMMENDATION: Routine screening mammogram of both breasts in 6 months. Back on schedule.
--- NOTE | 2021-12-11 08:52 | USB ---
Reason for exam: follow-up at short interval from prior study. History: Patient is postmenopausal, has history of breast cancer at age 55, and is nulliparous. Family history of breast cancer in mother at age 65. Benign US biopsy breast VAD RT of the right breast, March 22, 2019. Benign US biopsy breast add'l VAD RT of the right breast, March 22, 2019. Benign US biopsy breast add'l VAD RT of the right breast, March 22, 2019. Mastectomy of the left breast, January 28, 2016. Malignant MG pre op needle loc LT of the left breast, January 15, 2016. Malignant MG stereo VAD BX LT of the left breast, November 17, 2015. Chemotherapy, 2016. Radiation therapy, 2015. Benign MG stereo VAD BX LT of the left breast, February 04, 2014. Excisional biopsy of the right breast, March 06, 2008. Benign core biopsy of the right breast, February 18, 1998. Excisional biopsy of the left breast. Taking antineoplastic for 5 years beginning at age 55. Physical Findings: A clinical breast exam by your physician is recommended on an annual basis and results should be correlated with mammographic findings. US Breast Limited RT Right limited breast ultrasound including focal area of concern, retroareolar and axilla demonstrates a 1.1 x 0.7 x 0.7cm oval, irregular, mixed lesion at 5 o'clock, a 0.8 x 0.7 x 0.4cm oval, irregular, hypoechoic cluster at 11 o'clock, a 1.5 x 0.7 x 0.5cm oval lymph node at the axilla and a 0.7 x 0.9 x 0.4cm oval, irregular, hypoechoic lesion at 11 o'clock. Results were given to the patient verbally at the time of the exam. ASSESSMENT: Benign, BI-RAD 2 RECOMMENDATION: Routine screening mammogram of both breasts in 6 months. Back on schedule.
== END | disposition home or self-care (01) ==
LOC: RADMAMWWP 13:47
PROVIDERS: ATTEND Internal Medicine Hematology & Oncology
DX: N64.89 Other specified disorders of breast (principal); Z78.0 Asymptomatic menopausal state; Z85.3 Personal history of malignant neoplasm of breast; Z80.3 Family history of malignant neoplasm of breast; Z90.12 Acquired absence of left breast and nipple
CPT/HCPCS: 77065; 76642; G0279; 77061

== ENCOUNTER → 2021-12-29 | Outpatient (CLI) | payer MEDICARE, OTHER ==
--- NOTE | 2021-12-29 22:23 | BD ---
EXAMINATION TYPE: Axial Bone Density DATE OF EXAM: 12/29/2021 CLINICAL HISTORY: 61 years year old Female. ICD-10 CODE: C50.112 breast cancer Height: 5 FT 3 IN Weight: 158 FRAX RISK QUESTIONS: Alcohol (3 or more units per day): NO Family History (Parent hip fracture): UNKNOWN Glucocorticoids (More than 3mos): NO (Ex: prednisone, prednisolone, methylprednisolone, dexamethasone, and hydrocortisone). History of Fracture in Adulthood: NO Secondary Osteoporosis: 1. Type 1 Diabetes: NO 2. Hyperthyroidism: ASCENCION 3. Menopause before 45: YES 4. Malnutrition: NO 5. Chronic liver disease: NO Rheumatoid Arthritis: NO Current Tobacco Use: NO RISK FACTORS HISTORY OF: Surgery to Spine/Hip(right/left)/Wrist (right/left): NO Family History of Osteoporosis: UNKNOWN Active: NO Diet low in dairy products/other sources of calcium: NO Postmenopausal woman: YES Take estrogen and/or progesterone medications: NO Lost more than 2 inches in height since high school: UNKNOWN Frequent falls: NO Poor Health: GOOD Hyperparathyroidism: NO Adrenal Insufficiency: NO MEDICATIONS: Additional Medications: LETROZOLE ,METOPROLOL, ANXIETY MEDS, MEDS, FOR AGITATION, LASIX, FOLIC ACID, TRILEPTAL,LIPITOR, MELATONIN, Additional History: BREAST CANCER 2016, PT HAS SEIZURE DISORDER EXAM MEASUREMENTS: Bone mineral densitometry was performed using the [employer] System. Bone mineral density as measured about the Lumbar spine is: ----- L1-L4(G/cm2): 1.390 T Score Values are as follows: ----- L1: 0.5 ----- L2: 1.4 ----- L3: 2.1 ----- L4: 2.6 ----- L1-L4:1.8 Bone mineral density has: INCREASED 0.3 % since study of: 2019 Bone mineral density about the R hip (g/cm2): 1.153 Bone mineral density about the L hip (g/cm2): 1.210 T Score values are as follows: -----R Neck: 0.8 -----L Neck: 1.2 -----R Total: 1.6 -----L Total: 1.9 Bone mineral density has: DECREASED -5.0% since study of: 2019 FRAX%s: The graph provided illustrates a 2.5 % chance for a major osteoporotic fx and a 0.0 % chance for the hips probability for fx in 10 years time. IMPRESSION: Normal (Values between +1 and -1 indicate normal bone mass). Consider repeating this study in 5 year s or sooner if there is some new clinical indication. NOTE: T-SCORE=SD OF THE YOUNG ADULT MEAN.
== END | disposition home or self-care (01) ==
LOC: RADBDWWP 12:44
PROVIDERS: ATTEND Internal Medicine Hematology & Oncology
DX: C50.112 Malignant neoplasm of central portion of left female breast (principal); Z78.0 Asymptomatic menopausal state
CPT/HCPCS: 77080

== ENCOUNTER → 2022-02-24 | Outpatient (CLI) | payer MEDICARE, OTHER ==
[2022-02-24 14:20] LABS: Basophils # (A) 0.03 X 10*3/uL (0.00-0.10); Basophils % (A) 0.7 %; Eosinophils # (A) 0.05 X 10*3/uL (0.04-0.35); Eosinophils % (A) 1.1 %; HCT 39.4 % (37.2-46.3); HGB 12.2 g/dL (12.0-15.0); Immature Grans, Automated 0.2 %; Lymphocytes % (A) 29.4 %; MCH 26.9 pg (27.0-32.0); Mean Platelet Volume 10.4 fL (9.5-12.2); Monocytes # (A) 0.33 X 10*3/uL (0.20-1.00); Monocytes % (A) 7.5 %; NRBC Per 100 WBC 0 /100 WBCS (0.0-0.0); Neutrophils % (A) 61.1 %; Platelet Count 233 X 10*3/uL (140-440); RBC 4.53 X 10*6/uL (4.10-5.20); RDW 13.6 % (11.5-14.5); WBC 4.42 X 10*3/uL (4.50-10.00)
[2022-02-24 14:45] LABS: ALT 21 U/L (8-44); AST 22 U/L (13-35); African American GFR (CKD) 91.6 (60.0-200.0); BUN/Creat Ratio 21.13 Ratio (12.00-20.00); Blood Urea Nitrogen 16.9 mg/dL (9.0-27.0); Calcium 9.9 mg/dL (8.7-10.3); Carbon Dioxide 30.8 mmol/L (20.0-27.5); Chloride 102 mmol/L (96-109); Glucose 92 mg/dL (70-110); Potassium 4.6 mmol/L (3.5-5.5); Sodium 142 mmol/L (135-145)
[2022-02-24 14:46] LABS: Chol/HDL Ratio 2.58 Ratio; LDL Cholesterol,Calculated 114.8 mg/dL (0.0-131.0)
== END | disposition home or self-care (01) ==
LOC: LABWHC1 08:08
PROVIDERS: ATTEND Family Medicine
DX: I10 Essential (primary) hypertension (principal); G40.909 Epilepsy, unspecified, not intractable, without status epilepticus; E78.5 Hyperlipidemia, unspecified
CPT/HCPCS: 36415; 80048; 80061; 80183; 84450; 84460; 85025

== ENCOUNTER → 2022-12-16 | Outpatient (CLI) | payer MEDICARE, OTHER ==
--- NOTE | 2022-12-18 15:49 | MM ---
Reason for Exam: Screening (asymptomatic). Last screening mammogram was performed 12 month(s) ago. Patient History: Menarche at age 11. Patient has no children. Left ovary removed at age 41. Right ovary removed at age 41. Hysterectomy at age 41. Postmenopausal. Breast cancer, age 55. 03/06/2008, Excisional Biopsy on the Right side. Excisional Biopsy on the Left side. 01/28/2016, Mastectomy on the Left side. 03/22/2019, Benign Core Biopsy on the right side. 03/22/2019, Benign Core Biopsy on the right side. 03/22/2019, Benign Core Biopsy on the right side. 01/15/2016, Malignant Core Biopsy on the left side. 11/17/2015, Malignant Core Biopsy on the left side. 02/04/2014, Benign Core Biopsy on the left side. 02/18/1998, Benign Core Biopsy on the right side. 2015, Chemotherapy. 2015, Radiation Therapy. Mother had breast cancer, age 65. Prior Study Comparison: 08/07/2020 Right Diagnostic Mammogram, [facility]. 06/11/2021 Right Diagnostic Mammogram, [facility]. 12/10/2021 Right Diagnostic Mammogram, [facility]. Tissue Density: Right: The breast tissue is heterogeneously dense. This may lower the sensitivity of mammography. Findings: Analyzed By CAD. 5 microclips in the right breast from prior biopsies. Area of architectural distortion is now apparent inferior anterior right MLO view adjacent to 2 previous microclips. Not as well-seen on the cc view. Further evaluation recommended. Otherwise, no significant change. Overall Assessment: Incomplete: need additional imaging evaluation, BI-RAD 0 Management: Special View Mammogram of the right breast. Diagnostic Breast Ultrasound of the right breast. Additional 3-D spot compression views and 3-D LM view. Subsequent whole right breast ultrasound, particular attention to the medial aspect. [facility] will attempt to contact patient to return for supplemental views and ultrasound if indicated. Electronically signed and approved by: Frank Maier M.D. Radiologist
== END | disposition home or self-care (01) ==
LOC: RADMAMWWP 16:28
PROVIDERS: ATTEND Internal Medicine Hematology & Oncology
DX: Z12.31 Encounter for screening mammogram for malignant neoplasm of breast (principal); Z78.0 Asymptomatic menopausal state; Z90.710 Acquired absence of both cervix and uterus; Z85.3 Personal history of malignant neoplasm of breast; Z80.3 Family history of malignant neoplasm of breast
CPT/HCPCS: 77067

== ENCOUNTER → 2022-12-23 | Outpatient (CLI) | payer MEDICARE, OTHER ==
--- NOTE | 2022-12-23 14:39 | MM ---
Reason for Exam: Additional evaluation requested from abnormal screening. Last screening mammogram was performed less than 1 month ago. Patient History: Menarche at age 11. Patient has no children. Left ovary removed at age 41. Right ovary removed at age 41. Hysterectomy at age 41. Postmenopausal. Breast cancer, age 55. 03/06/2008, Excisional Biopsy on the Right side. Excisional Biopsy on the Left side. 01/28/2016, Mastectomy on the Left side. 03/22/2019, Benign Core Biopsy on the right side. 03/22/2019, Benign Core Biopsy on the right side. 03/22/2019, Benign Core Biopsy on the right side. 01/15/2016, Malignant Core Biopsy on the left side. 11/17/2015, Malignant Core Biopsy on the left side. 02/04/2014, Benign Core Biopsy on the left side. 02/18/1998, Benign Core Biopsy on the right side. 2015, Chemotherapy. 2015, Radiation Therapy. Mother had breast cancer, age 65. Tissue Density: Right: The breast tissue is heterogeneously dense. This may lower the sensitivity of mammography. Findings: Analyzed By CAD. Persistent 2 biopsy clips with 7 mm circumscribed round mass in architectural distortion in the anterior lower inner right breast. This is unchanged on additional views from the 2020 mammogram. Overall Assessment: Benign, BI-RAD 2 Management: Diagnostic Mammogram of both breasts in 1 year. Return to routine follow-up. Results were given to the patient verbally at the time of exam. Patient should continue monthly self-breast exams. A clinical breast exam by your physician is recommended on an annual basis. This exam should not preclude additional follow-up of suspicious palpable abnormalities. Note on Marci scores and lifetime risk: 1. A Marci score greater than 3% is considered moderate risk. If this is the case, consider specialist referral to assess eligibility for a risk reducing agent. 2. If overall lifetime risk for the development of breast cancer is 20% or higher, the patient may qualify for future screening with alternating mammogram and breast MRI. Electronically signed and approved by: Jose Rafael Epps M.D.
== END | disposition home or self-care (01) ==
LOC: RADMAMWWP 14:08
PROVIDERS: ATTEND Internal Medicine Hematology & Oncology
DX: R92.8 Other abnormal and inconclusive findings on diagnostic imaging of breast (principal); Z78.0 Asymptomatic menopausal state; Z80.3 Family history of malignant neoplasm of breast
CPT/HCPCS: 77065; G0279; 77061

== ENCOUNTER → 2023-03-28 | Outpatient (CLI) | payer MEDICARE ==
[2023-03-28 20:08] LABS: HCT 39.2 % (37.2-46.3); HGB 12.8 d/dL (12.0-15.0); MCH 27.6 pg (27.0-32.0); MCHC 32.7 d/dL (32.0-37.0); MCV 84.7 FL (80.0-97.0); Mean Platelet Volume 10.1 FL (9.5-12.2); NRBC Per 100 WBC 0 X 10*3/uL (0.00-0.01); Platelet Count 269 X 10*3/uL (140-440); RBC 4.63 X 10*6/uL (4.10-5.20); RDW 13.9 % (11.5-14.5); WBC 6.71 X 10*3/uL (4.50-10.00)
[2023-03-28 20:56] LABS: ALT 25 U/L (8-44); AST 26 U/L (13-35); BUN/Creat Ratio 14.86 Ratio (12.00-20.00); Blood Urea Nitrogen 10.4 mg/dL (9.0-27.0); Calcium 10.1 mg/dL (8.7-10.3); Carbon Dioxide 29.8 mmol/L (21.6-31.8); Chloride 100 mmol/L (96-109); Glucose 94 mg/dL (70-110); Potassium 4.8 mmol/L (3.5-5.5); Sodium 139 mmol/L (135-145)
== END | disposition home or self-care (01) ==
LOC: LABWHC1 15:23
PROVIDERS: ATTEND Family Medicine
DX: I10 Essential (primary) hypertension (principal); E66.3 Overweight
CPT/HCPCS: 36415; 80048; 83036; 84450; 84460; 85027

== ENCOUNTER 2023-05-05 10:00 | Emergency (ER) | payer MEDICARE, OTHER ==
[2023-05-05] MEDS ORDERED: SODIUM CHLORIDE 0.9% 1,000 ML IV STA (10:13)
[2023-05-05 10:51] LABS: Basophils % (A) 0 %; Eosinophils % (A) 1 %; HCT 37.3 % (34.0-46.0); HGB 12.3 gm/dL (11.4-16.0); Lymphocytes # (A) 0.8 k/uL (1.0-4.8); Lymphocytes % (A) 17 %; MCH 28.3 pg (25.0-35.0); MCV 85.6 fL (80.0-100.0); Mean Platelet Volume 8.5; Monocytes # (A) 0.2 k/uL (0-1.0); Monocytes % (A) 4 %; Neutrophils # (A) 3.4 k/uL (1.3-7.7); Neutrophils % (A) 75 %; Platelet Count 220 k/uL (150-450); RBC 4.36 m/uL (3.80-5.40); RDW 13.3 % (11.5-15.5); WBC 4.5 k/uL (3.8-10.6)
[2023-05-05 13:03] LABS: ALT 26 U/L (4-34); AST 33 U/L (14-36); African American GFR (CKD) >90 (>60 ml/min/1.73 sqM); Albumin 3.9 g/dL (3.5-5.0); Alkaline Phosphatase 85 U/L (38-126); Anion Gap 7 mmol/L; Blood Urea Nitrogen 14 mg/dL (7-17); Carbon Dioxide 30 mmol/L (22-30); Chloride 101 mmol/L (98-107); Glucose 109 mg/dL (74-99); Magnesium 1.9 mg/dL (1.6-2.3); Non-African American GFR(CKD) >90 (>60 ml/min/1.73 sqM); Potassium 4.3 mmol/L (3.5-5.1); Sodium 138 mmol/L (137-145); Total Bilirubin 0.4 mg/dL (0.2-1.3); Total Protein 7.8 g/dL (6.3-8.2)
[2023-05-05 13:50] LABS: Appearance,Urine Clear (Clear); Bilirubin,Urine Negative (Negative); Blood,Urine Negative (Negative); Color,Urine Colorless; Glucose,Urine (UA) Negative (Negative); Ketones,Urine Negative (Negative); Leukocyte Esterase,Urine Negative (Negative); Nitrite,Urine Negative (Negative); PH, Urine 6.5 (5.0-8.0); Protein,Urine Negative (Negative); Specific Gravity,Urine 1.011 (1.001-1.035); Urobilinogen,Urine <2.0 mg/dL (<2.0)
--- NOTE | 2023-05-05 14:19 | ED ---
Seizure HPI - General Chief Complaint: Seizure Stated Complaint: Seizures Time Seen by Provider: 05/05/23 10:05 Source: EMS Mode of arrival: EMS Limitations: no limitations - History of Present Illness Initial Comments: 62 year old mentally disabled patient with history of seizures who presents to ED with seizure at her adult day camp. Staff states the patient had a full tonic clonic seizure. They administered 2 intranasal doses of midazolam before the seizure stopped. Reportedly lasted for 10 minutes. Patient presents to ED and is back to baseline. She did not have any incontinence. She did not bite her tongue. No trauma as patient remained seated during seizure. - Related Data Home Medications Medication Instructions Recorded Confirmed Furosemide [Lasix] 40 mg PO DAILY 01/04/14 05/05/23 Metoprolol Tartrate [Lopressor] 50 mg PO BID 01/04/14 05/05/23 Folic Acid 0.5 mg PO DAILY 12/26/15 05/05/23 Letrozole [Femara] 2.5 mg PO DAILY 06/07/17 05/05/23 OXcarbazepine [Trileptal] 300 mg PO TID 10/13/17 05/05/23 hydrOXYzine pamoate [Vistaril] 25 mg PO BID 02/06/19 05/05/23 Bimatoprost [Lumigan .01% Ophth 1 drop BOTH EYES HS PRN 04/01/20 05/05/23 Soln] Atorvastatin [Lipitor] 10 mg PO DAILY 05/05/23 05/05/23 Cholecalciferol [Vitamin D3 (25 50 mcg PO DAILY 05/05/23 05/05/23 Mcg = 1000 Iu)] Loratadine [Claritin] 10 mg PO DAILY PRN 05/05/23 05/05/23 Melatonin 3 mg PO HS 05/05/23 05/05/23 Midazolam [Nayzilam] 1 spray NASAL ONCE PRN 05/05/23 05/05/23 OLANZapine [OLANZapine Odt] 20 mg PO DAILY 05/05/23 05/05/23 Potassium Chloride ER [K-Dur 10] 10 meq PO DAILY 05/05/23 05/05/23 Allergies Allergy/AdvReac Type Severity Reaction Status Date / Time No Known Allergies Allergy Verified 05/05/23 12:27 Review of Systems ROS Statement: Those systems with pertinent positive or pertinent negative responses have been documented in the HPI. ROS Other: All systems not noted in ROS Statement are negative. Past Medical History Past Medical History: Seizure Disorder, Thyroid Disorder Additional Past Medical History / Comment(s): DEVLOPMENTALY Delayed, SAYS "YES, FOR EVERYTHING," HASHIMOTOS, , bilateral GLAUCOMA. USES C-PAP. chronic CELLULITIS LOWER LEGS, HAS EDEMA, WEARS SUPPORT HOSE. LT BREAST CA CURRENTLY, with mastectomy and receiving chemo. History of Any Multi-Drug Resistant Organisms: None Reported Past Surgical History: Breast Surgery, Hysterectomy Additional Past Surgical History / Comment(s): LT BREAST biospy- previous had breast procedures in past-not sure what, L breast mastectomy and lymphadenectomy, R chest power port. Past Anesthesia/Blood Transfusion Reactions: No Reported Reaction Additional Past Anesthesia/Blood Transfusion Reaction / Comment(s): IV started by anesthesia. diff getting IV in for last procedure. Took > 1 hr and need Ultrasound to find vein per guardian. Past Psychological History: Depression Smoking Status: Never smoker Past Alcohol Use History: None Reported Past Drug Use History: None Reported - Past Family History Mother Family Medical History: Cancer Additional Family Medical History / Comment(s): , lung ca Father Family Medical History: Hypertension Additional Family Medical History / Comment(s): Cellulitis. Father at the age of 92yrs. General Exam Limitations: physical limitation General appearance: alert, in no apparent distress Head exam: Present: atraumatic, normocephalic, normal inspection Eye exam: Present: normal appearance, PERRL, EOMI. Absent: scleral icterus, conjunctival injection, periorbital swelling ENT exam: Present: normal exam, mucous membranes moist Neck exam: Present: normal inspection. Absent: tenderness, meningismus, lymphadenopathy Respiratory exam: Present: normal lung sounds bilaterally. Absent: respiratory distress, wheezes, rales, rhonchi, stridor Cardiovascular Exam: Present: regular rate, normal rhythm, normal heart sounds. Absent: systolic murmur, diastolic murmur, rubs, gallop, clicks GI/Abdominal exam: Present: soft, normal bowel sounds. Absent: distended, tenderness, guarding, rebound, rigid Extremities exam: Present: normal inspection, full ROM, normal capillary refill. Absent: tenderness, pedal edema, joint swelling, calf tenderness Back exam: Present: normal inspection Neurological exam: Present: alert, CN II-XII intact Psychiatric exam: Present: normal affect, normal mood Skin exam: Present: warm, dry, intact, normal color. Absent: rash Course Vital Signs 05/05/23 05/05/23 10:04 14:38 Temperature 98.6 F Pulse Rate 73 87 Respiratory 18 18 Rate Blood Pressure 132/77 134/78 O2 Sat by Pulse 98 98 Oximetry Medical Decision Making - Medical Decision Making Was pt. sent in by a medical professional or institution (, JUDY, DRY CELL TESTER, urgent care, hospital, or snf...) When possible be specific @ -Adult day camp Did you speak to anyone other than the patient for history (EMS, parent, family, police, friend...)? What history was obtained from this source @ -Spoke with EMS and patients sister Did you review nursing and triage notes (agree or disagree)? Why? @ -I reviewed and agree with nursing and triage notes Were old charts reviewed (outside hosp., previous admission, EMS record, old EKG, old radiological studies, urgent care reports/EKG's, snf records)? Report findings @ -No old charts were reviewed Differential Diagnosis (chest pain, altered mental status, abdominal pain women, abdominal pain men, vaginal bleeding, weakness, fever, dyspnea, syncope, headache, dizziness, GI bleed, back pain, seizure, CVA, palpatations, mental health, musculoskeletal)? @ -SAH, SDH, brain mass, meningitis, breakthrough seizure EKG interpreted by me (3pts min.). @ -Yes and demonstrates sinus rhythm with a rate of 70. HI interval 187. QRS 87. QTC of 409. No acute ST segment elevations or depressions X-rays interpreted by me (1pt min.). @ -None done CT interpreted by me (1pt min.). @ -yes and demonstrates no acute process U/S interpreted by me (1pt. min.). @ -None done What testing was considered but not performed or refused? (CT, X-rays, U/S, labs)? Why? @ -None What meds were considered but not given or refused? Why? @ -None Did you discuss the management of the patient with other professionals (professionals i.e. JUDY Weeks, DRY CELL TESTER, lab, RT, psych nurse, social work manager, reinforced concrete inspector, teacher, transportation security officer, case maker)? Give summary @ -No Was smoking cessation discussed for >3mins.? @ -No Was critical care preformed (if so, how long)? @ -No Were there social determinants of health that impacted care today? How? (Homelessness, low income, unemployed, alcoholism, drug addiction, transportation, low edu. Level, literacy, decrease access to med. care, nursing home, rehab)? @ -low literacy Was there de-escalation of care discussed even if they declined (Discuss DNR or withdrawal of care, Hospice)? DNR status @ -No What co-morbidities impacted this encounter? (DM, HTN, Smoking, COPD, CAD, Cancer, CVA, ARF, Chemo, Hep., AIDS, mental health diagnosis, sleep apnea, morbid obesity)? @ -developmental delay, seizures Was patient admitted / discharged? Hospital course, mention meds given and route, prescriptions, significant lab abnormalities, going to OR and other pertinent info. @ -Upon arrival patient placed into room 15. IV established. Labs conducted. Patient returns to baseline. She is stable for discharge but needs to follow up with neurologist. Return for any new or worsening symptoms. Patient agreeable and patient discharged in stable condition. Undiagnosed new problem with uncertain prognosis? @ -No Drug Therapy requiring intensive monitoring for toxicity (Heparin, Nitro, Insulin, Cardizem)? @ -No Were any procedures done? @ -No Diagnosis/symptom? @ -acute breakthrough seizure Acute, or Chronic, or Acute on Chronic? @ -acute on chronic Uncomplicated (without systemic symptoms) or Complicated (systemic symptoms)? @ -complicated Side effects of treatment? @ -No Exacerbation, Progression, or Severe Exacerbation? @ -No Poses a threat to life or bodily function? How? (Chest pain, [place], [place], pneumonia, PE, COPD, DKA, ARF, appy, cholecystitis, CVA, Diverticulitis, Homicidal, [place] icidal, threat to staff... and all critical care pts) @ -No - Lab Data Result diagrams: 05/05/23 10:30 05/05/23 12:36 Lab Results 05/05/23 05/05/23 05/05/23 Range/Units 10:30 12:36 13:37 WBC 4.5 (3.8-10.6) k/uL RBC 4.36 (3.80-5.40) m/uL Hgb 12.3 (11.4-16.0) gm/dL Hct 37.3 (34.0-46.0) % MCV 85.6 (80.0-100.0) fL MCH 28.3 (25.0-35.0) pg MCHC 33.0 (31.0-37.0) g/dL RDW 13.3 (11.5-15.5) % Plt Count 220 (150-450) k/uL MPV 8.5 Neutrophils % 75 % Lymphocytes % 17 % Monocytes % 4 % Eosinophils % 1 % Basophils % 0 % Neutrophils # 3.4 (1.3-7.7) k/uL Lymphocytes # 0.8 L (1.0-4.8) k/uL Monocytes # 0.2 (0-1.0) k/uL Eosinophils # 0.0 (0-0.7) k/uL Basophils # 0.0 (0-0.2) k/uL Sodium 138 (137-145) mmol/L Potassium 4.3 (3.5-5.1) mmol/L Chloride 101 (98-107) mmol/L Carbon Dioxide 30 (22-30) mmol/L Anion Gap 7 mmol/L BUN 14 (7-17) mg/dL Creatinine 0.69 (0.52-1.04) mg/dL Est GFR (CKD-EPI)AfAm >90 (>60 ml/min/1.73 sqM) Est GFR (CKD-EPI)NonAf >90 (>60 ml/min/1.73 sqM) Glucose 109 H (74-99) mg/dL Calcium 9.0 (8.4-10.2) mg/dL Magnesium 1.9 (1.6-2.3) mg/dL Total Bilirubin 0.4 (0.2-1.3) mg/dL AST 33 (14-36) U/L ALT 26 (4-34) U/L Alkaline Phosphatase 85 (38-126) U/L Total Protein 7.8 (6.3-8.2) g/dL Albumin 3.9 (3.5-5.0) g/dL Urine Color Colorless Urine Appearance Clear (Clear) Urine pH 6.5 (5.0-8.0) Ur Specific [place] 1.011 (1.001-1.035) Urine Protein Negative (Negative) Urine Glucose (UA) Negative (Negative) Urine Ketones Negative (Negative) Urine Blood Negative (Negative) Urine Nitrite Negative (Negative) Urine Bilirubin Negative (Negative) Urine Urobilinogen <2.0 (<2.0) mg/dL Ur Leukocyte Esterase Negative (Negative) Disposition Clinical Impression: Breakthrough seizure Disposition: HOME SELF-CARE Condition: Stable Instructions (If sedation given, give patient instructions): Seizure/Epilepsy Discharge Instructions & Follow-Up Additional Instructions: Please follow-up with your neurologist. Continue taking your medications as directed. Return for any new or worsening symptoms Is patient prescribed a controlled substance at d/c from ED?: No Referrals: Wilber Hatch DO [Primary Care Provider] - 1-2 days Nataly Mason MD [REFERRING] - 1-2 days Time of Disposition: 14:24
[2023-05-05 16:01] VITALS: BP 134/78; PULSE 87; RESP 18; TEMP 98.6
== END 2023-05-05 14:38 | disposition home or self-care (01) ==
LOC: EEVIPCON 10:00 → EC 10:00
DX: G40.909 Epilepsy, unspecified, not intractable, without status epilepticus (principal); F32.A Depression, unspecified; Z79.899 Other long term (current) drug therapy
CPT/HCPCS: 36415; 51701; 80053; 81003; 83735; 85025; 93005; 96360; 99284

== ENCOUNTER → 2023-07-21 | Outpatient (CLI) | payer MEDICARE, OTHER | END | disposition home or self-care (01) | LOC: LABWHC1 09:27 | PROVIDERS: ATTEND Psychiatry & Neurology Neurology | DX: G40.009 Localization-related (focal) (partial) idiopathic epilepsy and epileptic syndromes with seizures of localized onset, not intractable, without status epilepticus (principal) | CPT/HCPCS: 36415; 80183 ==

== ENCOUNTER → 2024-01-02 | Outpatient (CLI) | payer MEDICARE, OTHER ==
--- NOTE | 2024-01-02 18:12 | BD ---
EXAMINATION TYPE: Axial Bone Density DATE OF EXAM: 01/02/2024 CLINICAL HISTORY: 63 years old Female. ICD-10 CODE: Z12.31 Screening mammogram; C50.112 Breast CA Nuclear Medicine Study in the last 2 weeks: Barium Study in the last week: : Height: Weight: FRAX RISK QUESTIONS: Family History (Parent hip fracture): unknown Secondary Osteoporosis: 2. Hyperthyroidism: Nuris 3. Menopause before 45: yes RISK FACTORS HISTORY OF: MEDICATIONS: EXAM MEASUREMENTS: Bone mineral densitometry was performed using the Audience System. Bone mineral density as measured about the Lumbar spine is: ----- L1-L4(G/cm2): 1.365 T Score Values are as follows: ----- L1: 0.5 ----- L2: 0.8 ----- L3: 2.0 ----- L4: 2.3 ----- L1-L4: 1.5 Z Score Values are as follows: ----- L1: 1.2 ----- L2: 1.5 ----- L3: 2.7 ----- L4: 3.0 ----- L1-L4: 2.2 Bone mineral density has: Decreased -1.8% since study of: 12-29-21 Bone mineral density about the R hip (g/cm2): 1.226 Bone mineral density about the L hip (g/cm2): 1.220 T Score values are as follows: -----R Neck: 0.8 -----L Neck: 1.4 -----R Total: 1.7 -----L Total: 1.7 Z Score values are as follows: -----R Neck: 1.2 -----L Neck: 1.8 -----R Total: 1.8 -----L Total: 1.7 Bone mineral density has: Decreased -0.3% since study of: 12-29-21 FRAX%s: The graph provided illustrates a 2.5% chance for a major osteoporotic fx and a 0.0% chance fo r the hips probability for fx in 10 years time. IMPRESSION: Normal (Values between +1 and -1 indicate normal bone mass). Consider repeating this study in 5 year s or sooner if there is some new clinical indication. NOTE: T-SCORE=SD OF THE YOUNG ADULT MEAN.
--- NOTE | 2024-01-02 19:26 | MM ---
Reason for Exam: Screening (asymptomatic). Last screening mammogram was performed 12 month(s) ago. Patient History: Menarche at age 11. Patient has no children. Left ovary removed at age 41. Right ovary removed at age 41. Hysterectomy at age 41. Postmenopausal. Breast cancer, age 55. 03/06/2008, Excisional Biopsy on the Right side. Excisional Biopsy on the Left side. 01/28/2016, Mastectomy on the Left side. 03/22/2019, Benign Core Biopsy on the right side. 03/22/2019, Benign Core Biopsy on the right side. 03/22/2019, Benign Core Biopsy on the right side. 01/15/2016, Malignant Core Biopsy on the left side. 11/17/2015, Malignant Core Biopsy on the left side. 02/04/2014, Benign Core Biopsy on the left side. 02/18/1998, Benign Core Biopsy on the right side. 2015, Chemotherapy. 2015, Radiation Therapy. Mother had breast cancer, age 65. Prior Study Comparison: 12/10/2021 Right Diagnostic Mammogram, [facility]. 12/16/2022 Right MG 3D screening mammo w/cad, [facility]. 12/23/2022 Right MG 3D work up w/cad RT, [facility]. Tissue Density: The breasts are heterogeneously dense, which may obscure small masses. Findings: Analyzed By CAD. Chronic nodularity. 5 microclips from prior biopsies. Distortion medial right breast from prior excision. There are new/increasing calcifications here for which magnification views are recommended. Otherwise, no significant change. Overall Assessment: Incomplete: need additional imaging evaluation, BI-RAD 0 Management: Special View Mammogram of the right breast. [facility] will attempt to contact patient to return for supplemental views and ultrasound if indicated. Electronically signed and approved by: Frank Maier M.D. Radiologist
== END | disposition home or self-care (01) ==
LOC: RADMAMWWP 10:32
PROVIDERS: ATTEND Internal Medicine Hematology & Oncology
DX: Z12.31 Encounter for screening mammogram for malignant neoplasm of breast (principal); C50.112 Malignant neoplasm of central portion of left female breast; I10 Essential (primary) hypertension; E06.3 Autoimmune thyroiditis; G47.39 Other sleep apnea; Z71.3 Dietary counseling and surveillance; Z80.3 Family history of malignant neoplasm of breast; Z78.0 Asymptomatic menopausal state
CPT/HCPCS: 77067; 77080

== ENCOUNTER → 2024-02-01 | Outpatient (CLI) | payer MEDICARE, OTHER ==
--- NOTE | 2024-02-01 09:11 | MM ---
Reason for Exam: Additional evaluation requested from abnormal screening. Last screening mammogram was performed less than 1 month ago. Patient History: Menarche at age 11. Patient has no children. Left ovary removed at age 41. Right ovary removed at age 41. Hysterectomy at age 41. Postmenopausal. Breast cancer, age 55. 03/06/2008, Excisional Biopsy on the Right side. Excisional Biopsy on the Left side. 01/28/2016, Mastectomy on the Left side. 03/22/2019, Benign Core Biopsy on the right side. 03/22/2019, Benign Core Biopsy on the right side. 03/22/2019, Benign Core Biopsy on the right side. 01/15/2016, Malignant Core Biopsy on the left side. 11/17/2015, Malignant Core Biopsy on the left side. 02/04/2014, Benign Core Biopsy on the left side. 02/18/1998, Benign Core Biopsy on the right side. 2015, Chemotherapy. 2015, Radiation Therapy. Mother had breast cancer, age 65. Prior Study Comparison: 12/16/2022 Right MG 3D screening mammo w/cad, [facility]. 12/23/2022 Right MG 3D work up w/cad RT, [facility]. 01/02/2024 Bilateral MG 3D screening mammo w/cad, [facility]. Tissue Density: Right: The breasts are heterogeneously dense, which may obscure small masses. Findings: Analyzed By CAD. Increasing microcalcifications right breast inner central portion. There is also nodular density inner lower right breast 5 cm from nipple measuring 7 mm. Ultrasound is recommended. Overall Assessment: Incomplete: need additional imaging evaluation, BI-RAD 0 Management: Diagnostic Breast Ultrasound of the right breast. . Results were given to the patient verbally at the time of exam. Patient should continue monthly self-breast exams. A clinical breast exam by your physician is recommended on an annual basis. This exam should not preclude additional follow-up of suspicious palpable abnormalities. Note on Marci scores and lifetime risk: 1. A Marci score greater than 3% is considered moderate risk. If this is the case, consider specialist referral to assess eligibility for a risk reducing agent. 2. If overall lifetime risk for the development of breast cancer is 20% or higher, the patient may qualify for future screening with alternating mammogram and breast MRI. Electronically signed and approved by: Lopez Goncalves M.D. Radiologis
--- NOTE | 2024-02-01 09:29 | USB ---
Reason for Exam: Additional evaluation requested from abnormal screening. Patient History: Menarche at age 11. Patient has no children. Left ovary removed at age 41. Right ovary removed at age 41. Hysterectomy at age 41. Postmenopausal. Breast cancer, age 55. 03/06/2008, Excisional Biopsy on the Right side. Excisional Biopsy on the Left side. 01/28/2016, Mastectomy on the Left side. 03/22/2019, Benign Core Biopsy on the right side. 03/22/2019, Benign Core Biopsy on the right side. 03/22/2019, Benign Core Biopsy on the right side. 01/15/2016, Malignant Core Biopsy on the left side. 11/17/2015, Malignant Core Biopsy on the left side. 02/04/2014, Benign Core Biopsy on the left side. 02/18/1998, Benign Core Biopsy on the right side. 2015, Chemotherapy. 2015, Radiation Therapy. Mother had breast cancer, age 65. Technique: Method: Targeted. Prior Study Comparison: 12/16/2022 Right MG 3D screening mammo w/cad, [facility]. 12/23/2022 Right MG 3D work up w/cad RT, [facility]. 01/02/2024 Bilateral MG 3D screening mammo w/cad, [facility]. Findings: The lower inner quadrant of the right breast, the axilla of the right breast and the retroareolar of the right breast were scanned. Hypoechoic mass at the right 4:00 position measuring 1.5 x 1.0 cm with irregular margins. Tissue diagnosis is recommended. There appear to be internal calcifications. Separate stereotactic core biopsy of microcalcifications are not of on the ultrasound guided core biopsy.. Overall Assessment: Suspicious, BI-RAD 4 Management: Ultrasound Core Biopsy of the left breast. A clinical breast exam by your physician is recommended on an annual basis and results should be correlated with mammographic findings. This exam should not preclude additional follow-up of suspicious palpable abnormalities. Results were given to the patient verbally at the time of exam. Electronically signed and approved by: Lopez Goncalves M.D. Radiologis
== END | disposition home or self-care (01) ==
LOC: RADMAMWWP 08:34
PROVIDERS: ATTEND Internal Medicine Hematology & Oncology
DX: R92.331 Mammographic heterogeneous density, right breast (principal); R92.8 Other abnormal and inconclusive findings on diagnostic imaging of breast; Z78.0 Asymptomatic menopausal state; Z80.3 Family history of malignant neoplasm of breast
CPT/HCPCS: 77061; 77065

== ENCOUNTER 2024-02-09 13:51 | Emergency (ER) | payer MEDICARE, OTHER ==
[2024-02-09 14:41] VITALS: RESP 18; TEMP 98.1
--- NOTE | 2024-02-09 14:59 | ED ---
Seizure HPI - General Chief Complaint: Seizure Stated Complaint: Seizure activity Time Seen by Provider: 02/09/24 14:40 Source: EMS Mode of arrival: EMS Limitations: altered mental status - History of Present Illness Initial Comments: 63-year-old female with past medical history of seizure disorder presents to the emergency department from [facility]. She does attend a day program. She had 2 seizures today. The facility reports that her last seizure was a year ago. She is compliant with her seizure medications. She did not sustain any injuries. 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 States that the patient does have seizure history with several breakthrough seizures. She does saw her neurologist a couple weeks ago. EEG and laboratory studies were performed. No medication changes were enacted. Patient's seizures have been relatively under control - Related Data Home Medications Medication Instructions Recorded Confirmed Furosemide [Lasix] 40 mg PO DAILY 01/04/14 02/09/24 Metoprolol Tartrate [Lopressor] 50 mg PO BID 01/04/14 02/09/24 Folic Acid 0.5 mg PO DAILY 12/26/15 02/09/24 Letrozole [Femara] 2.5 mg PO DAILY 06/07/17 02/09/24 OXcarbazepine [Trileptal] 300 mg PO TID 10/13/17 02/09/24 Atorvastatin [Lipitor] 10 mg PO DAILY 05/05/23 02/09/24 Midazolam [Nayzilam] 1 spray NASAL ONCE PRN 05/05/23 02/09/24 OLANZapine [OLANZapine Odt] 20 mg PO DAILY@1400 05/05/23 02/09/24 Potassium Chloride ER [K-Dur 10] 10 meq PO DAILY 05/05/23 02/09/24 Cholecalciferol (Vitamin D3) 50 mcg PO DAILY 02/09/24 02/09/24 [Vitamin D3 (50 Mcg = 2000 Iu)] Cranberry Fruit Extract [Cranberry] 200 mg PO DAILY 02/09/24 02/09/24 Melatonin 10 mg PO HS 02/09/24 02/09/24 OLANZapine ODT [ZyPREXA ZYDIS] 5 mg PO DAILY PRN 02/09/24 02/09/24 hydrOXYzine HCL 25 mg PO BID 02/09/24 02/09/24 Allergies Allergy/AdvReac Type Severity Reaction Status Date / Time No Known Allergies Allergy Verified 02/06/24 13:56 Review of Systems ROS Statement: Those systems with pertinent positive or pertinent negative responses have been documented in the HPI. ROS Other: All systems not noted in ROS Statement are negative. Past Medical History Past Medical History: Cancer, Hyperlipidemia, Hypertension, Seizure Disorder, Sleep Apnea/CPAP/BIPAP, Thyroid Disorder Additional Past Medical History / Comment(s): DEVELOPMENTALLY Delayed, SAYS "YES, FOR EVERYTHING"; HASHIMOTOS, [place] GLAUCOMA. NO CPAP- refuses. chronic CELLULITIS LOWER LEGS, HAS EDEMA, WEARS SUPPORT HOSE. LT BREAST CA 2016 with mastectomy, radiation, & chemo. Last seizure about 6 weeks ago. History of Any Multi-Drug Resistant Organisms: None Reported Past Surgical History: Breast Surgery, Hysterectomy Additional Past Surgical History / Comment(s): LT BREAST mastectomy; benign right breast biopsies. Past Anesthesia/Blood Transfusion Reactions: No Reported Reaction Additional Past Anesthesia/Blood Transfusion Reaction / Comment(s): IV started by anesthesia. diff getting IV in for last procedure. Took > 1 hr and need Ultr asound to find vein per guardian. Past Psychological History: Anxiety, Depression Smoking Status: Never smoker Past Alcohol Use History: None Reported Past Drug Use History: None Reported - Past Family History Mother Family Medical History: Cancer Additional Family Medical History / Comment(s): , lung ca Father Family Medical History: Hypertension Additional Family Medical History / Comment(s): Cellulitis. Father at the age of 92yrs. General Exam Limitations: altered mental status General appearance: lethargic Head exam: Present: atraumatic, normocephalic, normal inspection, other (Patient wearing helmet) Eye exam: Present: normal appearance, PERRL, EOMI. Absent: scleral icterus, conjunctival injection, periorbital swelling ENT exam: Present: normal exam, mucous membranes moist Neck exam: Present: normal inspection. Absent: tenderness, meningismus, lymphadenopathy Respiratory exam: Present: normal lung sounds bilaterally. Absent: respiratory distress, wheezes, rales, rhonchi, stridor Cardiovascular Exam: Present: regular rate, normal rhythm, normal heart sounds. Absent: systolic murmur, diastolic murmur, rubs, gallop, clicks Neurological exam: Present: altered Skin exam: Present: warm, dry, intact, normal color. Absent: rash Course Vital Signs 02/09/24 02/09/24 14:37 16:38 Temperature 98.1 F Pulse Rate 63 64 Respiratory 18 18 Rate Blood Pressure 101/64 115/62 O2 Sat by Pulse 93 L 98 Oximetry Medical Decision Making - Medical Decision Making Was pt. sent in by a medical professional or institution (JUDY Weeks, PROP AND EFFECTS DESIGNER, urgent care, hospital, or alf...) When possible be specific @ -Patient was sent in from [facility] Did you speak to anyone other than the patient for history (EMS, parent, family, police, friend...)? What history was obtained from this source @ -I spoke with the patient's guardian for history Did you review nursing and triage notes (agree or disagree)? Why? @ -I reviewed and agree with nursing and triage notes Were old charts reviewed (outside hosp., previous admission, EMS record, old EKG, old radiological studies, urgent care reports/EKG's, alf records)? Report findings @ -No old charts were reviewed Differential Diagnosis (chest pain, altered mental status, abdominal pain women, abdominal pain men, vaginal bleeding, weakness, fever, dyspnea, syncope, headache, dizziness, GI bleed, back pain, seizure, CVA, palpatations, mental health, musculoskeletal)? @ -Differential Seizure: Recurrent seizure disorder, febrile seizure, alcohol withdrawal, stimulants, meningitis, encephalitis, intercranial hemorrhage, intracranial tumor, stroke, eclampsia, thyrotoxicosis, hypocalcemia, hyponatremia, hypernatremia, hypomagnesemia, psychogenic, this is not meant to be an all-inclusive list. EKG interpreted by me (3pts min.). @ -yes and demonstrates sinus rhythm with a rate of 62. LA interval 192. QRS 84. QTc of 407. No acute ST segment elevations or depressions X-rays interpreted by me (1pt min.). @ -None done CT interpreted by me (1pt min.). @ -None done U/S interpreted by me (1pt. min.). @ -None done What testing was considered but not performed or refused? (CT, X-rays, U/S, la bs)? Why? @ -None What meds were considered but not given or refused? Why? @ -None Did you discuss the management of the patient with other professionals (professionals i.e. JUDY Weeks, PROP AND EFFECTS DESIGNER, lab, RT, psych nurse, director social service, sewer and cutter finger buff material, teacher, loan service officer, child support case officer)? Give summary @ -No Was smoking cessation discussed for >3mins.? @ -No Was critical care preformed (if so, how long)? @ -No Were there social determinants of health that impacted care today? How? (Homelessness, low income, unemployed, alcoholism, drug addiction, transportation, low edu. Level, literacy, decrease access to med. care, alf, rehab)? @ -No Was there de-escalation of care discussed even if they declined (Discuss DNR or withdrawal of care, Hospice)? DNR status @ -No What co-morbidities impacted this encounter? (DM, HTN, Smoking, COPD, CAD, Cancer, CVA, ARF, Chemo, Hep., AIDS, mental health diagnosis, sleep apnea, morbid obesity)? @ -Seizure disorder Was patient admitted / discharged? Hospital course, mention meds given and route, prescriptions, significant lab abnormalities, going to OR and other pertinent info. @ -Upon arrival patient seen and evaluated in room 14. Thorough history and physical exam was performed. IV was established and laboratory studies were ordered. Patient's guardian does arrive to the hospital. States that the patient does have seizures with breakthrough seizures. She is not concerned about her seizure activity as she states that they have been relatively controlled recently. She does not want any testing performed. She would prefer to be discharged home at this time. Patient will follow-up with her own neurologist and return for any new or with worsening symptoms Undiagnosed new problem with uncertain prognosis? @ -No Drug Therapy requiring intensive monitoring for toxicity (Heparin, Nitro, Insulin, Cardizem)? @ -No Were any procedures done? @ -No Diagnosis/symptom? @ -Acute breakthrough seizure, history of seizure disorder Acute, or Chronic, or Acute on Chronic? @ -Acute Uncomplicated (without systemic symptoms) or Complicated (systemic symptoms)? @ -Complicated Side effects of treatment? @ -No Exacerbation, Progression, or Severe Exacerbation? @ -No Poses a threat to life or bodily function? How? (Chest pain, [place], [place], pneumonia, PE, COPD, DKA, ARF, appy, cholecystitis, CVA, Diverticulitis, Homicidal, Suicidal, threat to staff... and all critical care pts) @ -No - Lab Data Lab Results 02/09/24 Range/Units 14:15 Urine Color Colorless Urine Appearance Clear (Clear) Urine pH 6.0 (5.0-8.0) Ur Specific [place] 1.015 (1.001-1.035) Urine Protein Negative (Negative) Urine Glucose (UA) Negative (Negative) Urine Ketones Negative (Negative) Urine Blood Negative (Negative) Urine Nitrite Negative (Negative) Urine Bilirubin Negative (Negative) Urine Urobilinogen <2.0 (<2.0) mg/dL Ur Leukocyte Esterase Negative (Negative) Urine Opiates Screen Not Detected (NotDetected) Ur Oxycodone Screen Not Detected (NotDetected) Urine Methadone Screen Not Detected (NotDetected) Ur Barbiturates Screen Not Detected (NotDetected) U Tricyclic Antidepress Not Detected (NotDetected) Ur Phencyclidine Scrn Not Detected (NotDetected) Ur Amphetamines Screen Not Detected (NotDetected) U Methamphetamines Scrn Not Detected (NotDetected) U Benzodiazepines Scrn Not Detected (NotDetected) Urine Cocaine Screen Not Detected (NotDetected) U Marijuana (THC) Screen Not Detected (NotDetected) Disposition Clinical Impression: Breakthrough seizure Disposition: HOME SELF-CARE Instructions (If sedation given, give patient instructions): Seizure/Epilepsy Discharge Instructions & Follow-Up Additional Instructions: Please follow-up with your neurologist to see if they want to make any changes in your medications Is patient prescribed a controlled substance at d/c from ED?: No Referrals: Wilber Hatch DO [Primary Care Provider] - 1-2 days Serina Mason MD [REFERRING] - 1-2 days Time of Disposition: 16:19
[2024-02-09 16:31] LABS: Appearance,Urine Clear (Clear); Bilirubin,Urine Negative (Negative); Blood,Urine Negative (Negative); Color,Urine Colorless; Glucose,Urine (UA) Negative (Negative); Ketones,Urine Negative (Negative); Leukocyte Esterase,Urine Negative (Negative); Nitrite,Urine Negative (Negative); Protein,Urine Negative (Negative); Specific Gravity,Urine 1.015 (1.001-1.035); Urobilinogen,Urine <2.0 mg/dL (<2.0)
[2024-02-09 16:40] VITALS: BP 115/62; PULSE 64
[2024-02-09 16:43] LABS: Amphetamine Screen,Urine Not Detected (NotDetected); Barbiturate Screen,Urine Not Detected (NotDetected); Benzodiazepines Screen,Urine Not Detected (NotDetected); Cocaine Screen,Urine Not Detected (NotDetected); Methadone Screen, Urine Not Detected (NotDetected); Opiate Screen,Urine Not Detected (NotDetected); Oxycodone Screen, Urine Not Detected (NotDetected); Phencyclidine Screen,Urine Not Detected (NotDetected); Tricyclic Antidepressant,Urine Not Detected (NotDetected); Urn Cannabinoid Scrn Not Detected (NotDetected)
== END 2024-02-09 16:39 | disposition home or self-care (01) ==
LOC: EC 13:51
DX: G40.909 Epilepsy, unspecified, not intractable, without status epilepticus (principal)
CPT/HCPCS: 36415; 80183; 80306; 81003; 93005; 99284

== ENCOUNTER → 2024-02-15 | Day surgery (SDC) | payer MEDICARE, OTHER ==
--- NOTE | 2024-02-21 14:32 | MM ---
Reason for Exam: Post Procedure Mammogram. Last screening mammogram was performed less than 1 month ago. Patient History: Menarche at age 11. Patient has no children. Left ovary removed at age 41. Right ovary removed at age 41. Hysterectomy at age 41. Postmenopausal. Breast cancer, age 55. 03/06/2008, Excisional Biopsy on the Right side. Excisional Biopsy on the Left side. 01/28/2016, Mastectomy on the Left side. 03/22/2019, Benign Core Biopsy on the right side. 03/22/2019, Benign Core Biopsy on the right side. 03/22/2019, Benign Core Biopsy on the right side. 01/15/2016, Malignant Core Biopsy on the left side. 11/17/2015, Malignant Core Biopsy on the left side. 02/04/2014, Benign Core Biopsy on the left side. 02/18/1998, Benign Core Biopsy on the right side. 2015, Chemotherapy. 2015, Radiation Therapy. Mother had breast cancer, age 65. Prior Study Comparison: 12/23/2022 Right MG 3D work up w/cad RT, [facility]. 01/02/2024 Bilateral MG 3D screening mammo w/cad, [facility]. 02/01/2024 Right MG 3D work up w/cad RT, [facility]. Tissue Density: Right: The breasts are heterogeneously dense, which may obscure small masses. Pathology Description: Location: 4 o'clock. Marker Left Behind. Cores: 5 Gauge: 12 The procedure of ultrasound guided core biopsy was explained to the patient. Benefits, alternatives, and risks were discussed. An informed consent was then obtained. The patient was placed in supine positioning for imaging and for the procedure. The overlying skin was prepped and draped in usual sterile fashion. Lidocaine buffered with bicarbonate was used as anesthetic into the skin and subcutaneous tissue up to area of concern in the right 4:00 breast. Under ultrasound guidance, a 12-gauge vacuum assisted biopsy gun device was used to obtain 5 core samples. Following this, a biopsy clip was left in lesion. The patient tolerated the procedure well without any immediate complication. The patient was kept in the radiology department for short stay after the procedure and then discharged home in stable condition. Postprocedure mammogram: The patient was transferred to mammography for physician ordered post procedure mammogram for clip placement verification. Impression: Successful, uncomplicated ultrasound guided core biopsy of area of concern in the right breast, full pathology results to follow. Pathology Results: Result: Benign, Fibroadenomatoid hyperplasia. Pathology and radiology were reviewed. Findings are concordant. RIGHT BREAST, FOUR O'CLOCK, ULTRASOUND GUIDED CORE BIOPSY: Hyalinized and sclerotic fibroadenomatoid hyperplasia with focal fibrocystic change to include apocrine metaplasia. See note. Notes It is noted there is recent ultrasound findings of a hypoechoic mass at the right breast 4 o'clock position with irregular margins measuring 1.5 x 1.0 cm, according to a 02/01/24 right breast ultrasound report. The findings seen with sclerotic and hyalinized hypocellular stroma surrounding focally compressed ductal structures is most compatible with a sclerotic fibroadenoma. Another consideration includes a fibrotic scar. Correlation with imaging studies is suggested, as deemed clinically appropriate. Overall Assessment: Benign Assessment: MG diagnostic mammo RT wo CAD - Right: Suspicious, BI-RAD 4. Management: Surgical Consultation of the right breast. Findings may be concordant. However, given distortion on mammogram and a discrete mass on ultrasound, given patient's personal history of left breast cancer, consider needle localization and excision. Electronically signed and approved by: Lopez Goncalves M.D. Radiologis
== END ==
LOC: RADUSWWP 12:56
PROVIDERS: ATTEND Internal Medicine Hematology & Oncology
DX: N60.81 Other benign mammary dysplasias of right breast (principal); R92.8 Other abnormal and inconclusive findings on diagnostic imaging of breast; Z78.0 Asymptomatic menopausal state; Z90.721 Acquired absence of ovaries, unilateral
CPT/HCPCS: 88305; 77065; 19083; A4648